=== PATIENT | female | born 1965 ===

== ENCOUNTER 2020-12-02 23:11 | Emergency (ER) | payer BC ==
[2020-12-02] MEDS ORDERED: levETIRAcetam 500 MG TAB PO ONE (23:50)
[2020-12-02] MEDS ORDERED: SODIUM CHLORIDE 0.9% 1000 ML 1,000 ML IV ONE (23:50)
[2020-12-02] MEDS ORDERED: cloNIDine 0.2 MG TAB PO ONE (23:53)
--- NOTE | 2020-12-02 23:54 | Emergency Department Report ---
HPI - General Chief Complaint: Hyperglycemia Time Seen by Provider: 12/02/20 23:39 - HPI HPI: Room 6 Patient is a 55-year-old female present with a chief complaint of hyperglycemia. Patient was recently discharged from this hospital after new onset seizure and hyperglycemia. The patient states she was given a prescription for insulin however the pharmacy states would not be able to fill it until Friday. The patient called back to this hospital spoke with staff to inquire what her current Accu-Chek was. The patient took her blood sugar and was found to be hyperglycemic at 525 so she was advised to come back to the emergency department. ED Past Medical Hx - Past Medical History Previous Medical History?: Yes Hx Hypertension: Yes Hx Diabetes: Yes Hx Seizures: Yes Hx Asthma: Yes Additional medical history: Fibromyalgia - Surgical History Past Surgical History?: No - Family History Family history: no significant - Social History Smoking Status: Never Smoker Substance Use Type: None - Medications Home Medications: Home Medications Medication Instructions Recorded Confirmed Last Taken Type Albuterol Sulfate [Albuterol 0.63% 0.63 mg IH TID PRN 12/01/20 12/01/20 Unknown History NEBS] Benzonatate 200 mg PO BID 12/01/20 12/01/20 Unknown History Budesonide/Formoterol Fumarate 10.2 gm IH DAILY 12/01/20 12/01/20 Unknown History [Symbicort 160-4.5 Mcg Inhaler] Montelukast [Singulair] 10 mg PO QPM 12/01/20 12/01/20 Unknown History Ibuprofen [Motrin 400 MG tab] 400 mg PO Q8H PRN #30 tablet 12/02/20 Unknown Rx Prednisone [predniSONE 10 mg 10 mg PO .TAPER #1 tab.ds.pk 12/02/20 Unknown Rx (6-Day Pack, 21 Tabs)] Triamter/Hctz 37.5-25 mg 1 each PO QAM #30 tablet 12/02/20 Unknown Rx [Maxzide-25] amLODIPine 5 mg PO QDAY #30 tablet 12/02/20 Unknown Rx Insulin Glargine [Lantus VIAL] 35 units SUB-Q QHS #10 ml 12/03/20 Unknown Rx Insulin Regular, Human [HumuLIN R] 0 unit SQ AC #1 vial 12/03/20 Unknown Rx levETIRAcetam [Keppra TAB] 500 mg PO BID #60 tablet 12/03/20 Unknown Rx ED Review of Systems ROS: Stated complaint: CALL BACK/HIGH BS/ MEDS Other details as noted in HPI Constitutional: no symptoms reported Eyes: denies: eye pain ENT: denies: throat pain Respiratory: no symptoms reported Cardiovascular: denies: chest pain Endocrine: no symptoms reported Gastrointestinal: denies: abdominal pain Genitourinary: denies: dysuria Musculoskeletal: denies: back pain Neurological: denies: headache Physical Exam - Physical Exam Vital Signs: Vital Signs 12/02/20 23:16 Temperature 98.7 F Pulse Rate 105 H Respiratory 16 Rate Blood Pressure 187/107 O2 Sat by Pulse 98 Oximetry Physical Exam: GENERAL: The patient is well-developed well-nourished female lying on stretcher not appearing to be in acute distress. [] HEENT: Normocephalic. Atraumatic. Extraocular motions are intact. Patient has moist mucous membranes. NECK: Supple. Trachea midline CHEST/LUNGS: Clear to auscultation. There is no respiratory distress noted. HEART/CARDIOVASCULAR: Regular. There is no tachycardia. There is no gallop rub or murmur. ABDOMEN: Abdomen is soft, nontender. Patient has normal bowel sounds. There is no abdominal distention. SKIN: There is no rash. There is no edema. There is no diaphoresis. NEURO: The patient is awake, alert, and oriented. The patient is cooperative. The patient has no focal neurologic deficits. The patient has normal speech and gait. MUSCULOSKELETAL: There is no evidence of acute injury. ED Course Vital Signs 12/02/20 23:16 Temperature 98.7 F Pulse Rate 105 H Respiratory 16 Rate Blood Pressure 187/107 O2 Sat by Pulse 98 Oximetry - Reevaluation(s) Reevaluation #1: 12/03/20 02:07 Accu-Chek 265 ED Medical Decision Making - Lab Data Result diagrams: 12/02/20 23:55 - Differential Diagnosis Hyperglycemia, DKA Critical care attestation.: If time is entered above; I have spent that time in minutes in the direct care of this critically ill patient, excluding procedure time. ED Disposition Clinical Impression: Hyperglycemia Disposition: DC-01 TO HOME OR SELFCARE Is pt being admited?: No Does the pt Need Aspirin: No Condition: Stable Additional Instructions: Return to the emergency department should you develop worsening symptoms, inability to tolerate food or liquids, high fever or any other concerns Prescriptions: Insulin Regular, Human [HumuLIN R] 0 unit SQ AC #1 vial levETIRAcetam [Keppra TAB] 500 mg PO BID #60 tablet Insulin Glargine [Lantus VIAL] 35 units SUB-Q QHS #10 ml Referrals: PRIMARY CARE, [Primary Care Provider] - 3-5 Days Time of Disposition: 02:09
[2020-12-03 00:18] VITALS: BP 166/88
[2020-12-03 00:50] LABS: Calcium 8.1 mg/dL (8.4-10.2)
[2020-12-03] MEDS ORDERED: INSULIN REGULAR, HUMAN 100 UNITS/1 ML IV ONE (01:07)
== END 2020-12-03 02:34 | disposition home or self-care (01) ==
LOC: ED 23:11
DX: E11.65 Type 2 diabetes mellitus with hyperglycemia (principal); I10 Essential (primary) hypertension; R56.9 Unspecified convulsions; J45.909 Unspecified asthma, uncomplicated; Z79.1 Long term (current) use of non-steroidal anti-inflammatories (NSAID); Z79.4 Long term (current) use of insulin; Z79.899 Other long term (current) drug therapy
CPT/HCPCS: 36415; 80048; 82805; 82962; 96361; 96374; 99283; J7030; J1815

== ENCOUNTER 2021-06-06 10:38 | Emergency (ER) | payer BC ==
[2021-06-06] MEDS ORDERED: guaiFENesin DM 200/20 MG ORAL LIQD 10 ML PO ONE (11:18)
[2021-06-06] MEDS ORDERED: ACETAMINOPHEN 325 MG TAB PO ONE (11:18)
[2021-06-06] MEDS ORDERED: dexAMETHasone 4 MG/ML VIAL IV ONE (11:19)
[2021-06-06] MEDS ORDERED: SODIUM CHLORIDE 0.9% 1000 ML 1,000 ML IV ONE (11:19)
[2021-06-06] MEDS ORDERED: cefTRIAXone/NS 2 GM/100 ML 2 GM/100 ML BAG IV ONE (11:19)
[2021-06-06] MEDS ORDERED: AZITHROMYCIN/NS 500 MG/250 ML 500 MG/250 ML BAG IV ONE (11:19)
--- NOTE | 2021-06-06 11:35 | Emergency Department Report ---
- General Chief Complaint: Upper Respiratory Infection Stated Complaint: COVID SYMPTOMS/ASTHMA Time Seen by Provider: 06/06/21 11:17 Source: patient Mode of arrival: Ambulatory Limitations: No Limitations - History of Present Illness Initial Comments: pt is a 55 yo female who presents to the ED with c/o COVID 19 symptoms that began 06/01/21. pt tested positive for COVID 19. her son also has COVID 19. she has associated cough, SOB, chest tightness. she reports she did have a subj ective fever but it resolved. she denies any v/d, pleuritic pain, leg swelling, hemoptysis. pmhx asthma, DM, HTN, fibromyalgia. no allergies to meds. pt states she saw her primary care doctor and completed a course of azithromycin and prednisone. - Related Data Home Medications Medication Instructions Recorded Confirmed Last Taken Albuterol Sulfate [Albuterol 0.63% 0.63 mg IH TID PRN 12/01/20 12/01/20 Unknown NEBS] Benzonatate 200 mg PO BID 12/01/20 12/01/20 Unknown Budesonide/Formoterol Fumarate 10.2 gm IH DAILY 12/01/20 12/01/20 Unknown [Symbicort 160-4.5 Mcg Inhaler] Montelukast [Singulair] 10 mg PO QPM 12/01/20 12/01/20 Unknown Previous Rx's Medication Instructions Recorded Last Taken Type Ibuprofen [Motrin 400 MG tab] 400 mg PO Q8H PRN #30 tablet 12/02/20 Unknown Rx Prednisone [predniSONE 10 mg 10 mg PO .TAPER #1 tab.ds.pk 12/02/20 Unknown Rx (6-Day Pack, 21 Tabs)] Triamter/Hctz 37.5-25 mg 1 each PO QAM #30 tablet 12/02/20 Unknown Rx [Maxzide-25] amLODIPine 5 mg PO QDAY #30 tablet 12/02/20 Unknown Rx Insulin Glargine [Lantus VIAL] 35 units SUB-Q QHS #10 ml 12/03/20 Unknown Rx Insulin Regular, Human [HumuLIN R] 0 unit SQ AC #1 vial 12/03/20 Unknown Rx levETIRAcetam [Keppra TAB] 500 mg PO BID #60 tablet 12/03/20 Unknown Rx Acetaminophen/Codeine [Tylenol 1 tab PO Q6H PRN #12 tab 06/06/21 Unknown Rx /Codeine # 3 tab] Benzonatate [Tessalon Perles] 100 mg PO Q8HR PRN #12 capsule 06/06/21 Unknown Rx Allergies Allergy/AdvReac Type Severity Reaction Status Date / Time No Known Allergies Allergy Verified 06/06/21 10:56 ED Review of Systems ROS: Stated complaint: COVID SYMPTOMS/ASTHMA Other details as noted in HPI Comment: All other systems reviewed and negative ED Past Medical Hx - Past Medical History Hx Hypertension: Yes Hx Diabetes: Yes Hx Seizures: Yes Hx Asthma: Yes Additional medical history: Fibromyalgia - Social History Smoking Status: Never Smoker Substance Use Type: None - Medications Home Medications: Home Medications Medication Instructions Recorded Confirmed Last Taken Type Albuterol Sulfate [Albuterol 0.63% 0.63 mg IH TID PRN 12/01/20 12/01/20 Unknown History NEBS] Benzonatate 200 mg PO BID 12/01/20 12/01/20 Unknown History Budesonide/Formoterol Fumarate 10.2 gm IH DAILY 12/01/20 12/01/20 Unknown History [Symbicort 160-4.5 Mcg Inhaler] Montelukast [Singulair] 10 mg PO QPM 12/01/20 12/01/20 Unknown History Ibuprofen [Motrin 400 MG tab] 400 mg PO Q8H PRN #30 tablet 12/02/20 Unknown Rx Prednisone [predniSONE 10 mg 10 mg PO .TAPER #1 tab.ds.pk 12/02/20 Unknown Rx (6-Day Pack, 21 Tabs)] Triamter/Hctz 37.5-25 mg 1 each PO QAM #30 tablet 12/02/20 Unknown Rx [Maxzide-25] amLODIPine 5 mg PO QDAY #30 tablet 12/02/20 Unknown Rx Insulin Glargine [Lantus VIAL] 35 units SUB-Q QHS #10 ml 12/03/20 Unknown Rx Insulin Regular, Human [HumuLIN R] 0 unit SQ AC #1 vial 12/03/20 Unknown Rx levETIRAcetam [Keppra TAB] 500 mg PO BID #60 tablet 12/03/20 Unknown Rx Acetaminophen/Codeine [Tylenol 1 tab PO Q6H PRN #12 tab 06/06/21 Unknown Rx /Codeine # 3 tab] Benzonatate [Tessalon Perles] 100 mg PO Q8HR PRN #12 capsule 06/06/21 Unknown Rx ED Physical Exam - General Limitations: No Limitations General appearance: alert, in no apparent distress - Head Head exam: Present: atraumatic, normocephalic - Eye Eye exam: Present: normal appearance - ENT ENT exam: Present: mucous membranes moist - Respiratory Respiratory exam: Present: normal lung sounds bilaterally. Absent: respiratory distress, wheezes, rales, rhonchi, stridor, chest wall tenderness, accessory muscle use, decreased breath sounds, prolonged expiratory - Cardiovascular Cardiovascular Exam: Present: regular rate, normal rhythm, normal heart sounds. Absent: systolic murmur, diastolic murmur, rubs, gallop - Neurological Exam Neurological exam: Present: alert, oriented X3 - Psychiatric Psychiatric exam: Present: normal affect, normal mood - Skin Skin exam: Present: warm, dry, intact ED Course Vital Signs 06/06/21 06/06/21 10:59 14:17 Temperature 99.7 F H 99.9 F H Pulse Rate 109 H 101 H Respiratory 22 16 Rate Blood Pressure 132/81 167/90 [Left] O2 Sat by Pulse 100 96 Oximetry ED Medical Decision Making - Lab Data Result diagrams: 06/06/21 12:01 06/06/21 12:01 Lab Results 06/06/21 06/06/21 06/06/21 Range/Units 12:01 12:01 12:01 WBC 7.0 (4.5-11.0) K/mm3 RBC 4.98 (3.65-5.03) M/mm3 Hgb 12.3 (10.1-14.3) gm/dl Hct 38.0 (30.3-42.9) % MCV 76 L (79-97) fl MCH 25 L (28-32) pg MCHC 32 (30-34) % RDW 15.4 H (13.2-15.2) % Plt Count 266 (140-440) K/mm3 Lymph % (Auto) 11.1 L (13.4-35.0) % [place] % (Auto) 7.5 H (0.0-7.3) % Eos % (Auto) 0.0 (0.0-4.3) % Baso % (Auto) 0.3 (0.0-1.8) % Lymph # (Auto) 0.8 L (1.2-5.4) K/mm3 [place] # (Auto) 0.5 (0.0-0.8) K/mm3 Eos # (Auto) 0.0 (0.0-0.4) K/mm3 Baso # (Auto) 0.0 (0.0-0.1) K/mm3 Seg Neutrophils % 81.1 H (40.0-70.0) % Seg Neutrophils # 5.7 (1.8-7.7) K/mm3 D-Dimer 375.99 H (0-234) ng/mlDDU VBG pH (7.320-7.420) Sodium 131 L (137-145) mmol/L Potassium 5.1 H (3.6-5.0) mmol/L Chloride 93.5 L (98-107) mmol/L Carbon Dioxide 23 (22-30) mmol/L Anion Gap 20 mmol/L BUN 26 H (7-17) mg/dL Creatinine 1.5 H (0.6-1.2) mg/dL Estimated GFR 36 ml/min BUN/Creatinine Ratio 17 % Glucose 449 H (65-100) mg/dL Calcium 8.6 (8.4-10.2) mg/dL Total Bilirubin 0.20 (0.1-1.2) mg/dL AST 24 (5-40) units/L ALT 22 (7-56) units/L Alkaline Phosphatase 82 (35-129) units/L C-Reactive Protein (0.00-1.30) mg/dL Total Protein 6.0 L (6.3-8.2) g/dL Albumin 3.1 L (3.9-5) g/dL Albumin/Globulin Ratio 1.1 % 06/06/21 06/06/21 Range/Units 12:01 15:16 WBC (4.5-11.0) K/mm3 RBC (3.65-5.03) M/mm3 Hgb (10.1-14.3) gm/dl Hct (30.3-42.9) % MCV (79-97) fl MCH (28-32) pg MCHC (30-34) % RDW (13.2-15.2) % Plt Count (140-440) K/mm3 Lymph % (Auto) (13.4-35.0) % [place] % (Auto) (0.0-7.3) % Eos % (Auto) (0.0-4.3) % Baso % (Auto) (0.0-1.8) % Lymph # (Auto) (1.2-5.4) K/mm3 [place] # (Auto) (0.0-0.8) K/mm3 Eos # (Auto) (0.0-0.4) K/mm3 Baso # (Auto) (0.0-0.1) K/mm3 Seg Neutrophils % (40.0-70.0) % Seg Neutrophils # (1.8-7.7) K/mm3 D-Dimer (0-234) ng/mlDDU VBG pH 7.411 (7.320-7.420) Sodium (137-145) mmol/L Potassium (3.6-5.0) mmol/L Chloride (98-107) mmol/L Carbon Dioxide (22-30) mmol/L Anion Gap mmol/L BUN (7-17) mg/dL Creatinine (0.6-1.2) mg/dL Estimated GFR ml/min BUN/Creatinine Ratio % Glucose (65-100) mg/dL Calcium (8.4-10.2) mg/dL Total Bilirubin (0.1-1.2) mg/dL AST (5-40) units/L ALT (7-56) units/L Alkaline Phosphatase (35-129) units/L C-Reactive Protein 1.60 H (0.00-1.30) mg/dL Total Protein (6.3-8.2) g/dL Albumin (3.9-5) g/dL Albumin/Globulin Ratio % Vital Signs 06/06/21 06/06/21 10:59 14:17 Temperature 99.7 F H 99.9 F H Pulse Rate 109 H 101 H Respiratory 22 16 Rate Blood Pressure 132/81 167/90 [Left] O2 Sat by Pulse 100 96 Oximetry - Radiology Data Radiology results: report reviewed Ordering Physician: JIAN BARKER Date of Service: 06/06/21 Procedure(s): XR chest routine 2V Accession Number(s): [id number] cc: JIAN BARKER Fluoro Time In Minutes: CHEST 2 VIEWS INDICATION: cough, SOB, CP. COMPARISON: None. FINDINGS: Support devices: None. Heart: Borderline. Lungs/Pleura: No acute air space or interstitial disease. No significant pleural effusion. IMPRESSION: Borderline heart size. Signer Name: Bret Holland MD Signed: 06/06/2021 11:56 AM Workstation Name: [id number] Transcribed By: ES Dictated By: Bret Holland MD Electronically Authenticated By: Bret Holland MD Signed Date/Time: 06/06/21 1156 DD/ 1155 TD/TT: Ordering Physician: JIAN BARKER Date of Service: 06/06/21 Procedure(s): NM perfusion only lung scan Accession Number(s): [id number] cc: JIAN BARKER NUCLEAR MEDICINE PERFUSION SCAN INDICATION: CP, SOB, elevated d-dimer CORRELATION: Chest x-ray performed the same day RADIOPHARMACEUTICAL: Perfusion: 5.1 mCi Tc-99m MAA given IV FINDINGS: Perfusion images show symmetric and uniform radiotracer distribution throughout bilateral lung zones with no evidence of unmatched segmental perfusion defects. Normal cardiac silhouette. IMPRESSION: Very low probability perfusion scan for pulmonary embolism. Signer Name: Justice Dunlap Jr, MD Signed: 06/06/2021 2:53 PM Workstation Name: [id number] Transcribed By: TTR Dictated By: JUSTICE DUNLAP JR, MD Electronically Authenticated By: JUSTICE DUNLAP JR, MD Signed Date/Time: 06/06/21 1453 DD/ 52 TD/TT: - Medical Decision Making pt is a 55 yo female who presents to the ED with c/o COVID 19 symptoms that began 06/01/21. pt tested positive for COVID 19. her son also has COVID 19. she has associated cough, SOB, chest tightness. she reports she did have a subjective fever but it resolved. she denies any v/d, pleuritic pain, leg swelling, hemoptysis. pmhx asthma, DM, HTN, fibromyalgia. no allergies to meds. pt states she saw her primary care doctor and completed a course of azithromycin and prednisone. Vitals with mild low-grade fever and elevated heart rate which improved upon repeat. Patient has no hypoxia. I personally ambulated patient for 2 minutes and she was able to maintain oxygen saturation of 97% or greater on room air. Labs with elevated D-dimer, dehydration, kidney dysfunction which appears slightly worse from previous. CXR: Lungs/Pleura: No acute air space or interstitial disease. No significant pleural effusion. IMPRESSION: Borderline heart size. VQ scan: Very low probability perfusion scan for pulmonary embolism. Patient given medications on the emergency department with improvement of her symptoms. Patient just completed a course of azithromycin and prednisone. Initial blood glucose elevated, improved upon 1 L IV fluids. Glucose elevation could be secondary to recent steroid use versus uncontrolled diabetes, discussed the importance of outpatient follow-up. 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 Advised patient please take medication as prescribed. increase your fluid intake. please self quarantine from 10 days from the onset of your symptoms. Follow-up with a primary care doctor for reexamination. Follow-up with a jewelry inspector regarding your kidney dysfunction. Return to emergency room immediately for any new or worsening symptoms. Recommend for you to get a pulse oximetry meter [id number] and if your oxygen is going below 93% please return to the emergency room. Critical care attestation.: If time is entered above; I have spent that time in minutes in the direct care of this critically ill patient, excluding procedure time. ED Disposition Clinical Impression: COVID-19, Dehydration, Kidney dysfunction, Hyperglycemia Disposition: 01 HOME / SELF CARE / HOMELESS Is pt being admited?: No Does the pt Need Aspirin: No Condition: Stable Instructions: COVID-19 Frequently Asked Questions, COVID-19 Additional Instructions: please take medication as prescribed. increase your fluid intake. please self quarantine from 10 days from the onset of your symptoms. Follow-up with a primary care doctor for reexamination. Follow-up with a jewelry inspector regarding your kidney dysfunction. Return to emergency room immediately for any new or worsening symptoms. Recommend for you to get a pulse oximetry meter [id number] and if your oxygen is going below 93% please return to the emergency room. Prescriptions: Benzonatate [Tessalon Perles] 100 mg PO Q8HR PRN #12 capsule PRN Reason: cough Acetaminophen/Codeine [Tylenol /Codeine # 3 tab] 1 tab PO Q6H PRN #12 tab PRN Reason: pain Referrals: your, primary care doctor [Other] - 2-3 Days Time of Disposition: 15:06 Print Language: THAI
--- NOTE | 2021-06-06 12:00 | XRay Report ---
CHEST 2 VIEWS INDICATION: cough, SOB, CP. COMPARISON: None. FINDINGS: Support devices: None. Heart: Borderline. Lungs/Pleura: No acute air space or interstitial disease. No significant pleural effusion. IMPRESSION: Borderline heart size. Signer Name: Bret Holland MD Signed: 06/06/2021 11:56 AM Workstation Name: [id number]
[2021-06-06 12:38] LABS: Basophils % (Auto) 0.3 % (0.0-1.8); Hemoglobin 12.3 gm/dl (10.1-14.3); Lymphocytes # (Auto) 0.8 K/mm3 (1.2-5.4); Lymphocytes % (Auto) 11.1 % (13.4-35.0); Mean Corpuscular HGB Conc 32 % (30-34); Mean Corpuscular Volume 76 fl (79-97); Monocytes # (Auto) 0.5 K/mm3 (0.0-0.8); Monocytes % (Auto) 7.5 % (0.0-7.3); Platelet Count 266 K/mm3 (140-440); Red Blood Count 4.98 M/mm3 (3.65-5.03); Red Cell Distribution Width 15.4 % (13.2-15.2)
[2021-06-06 12:47] LABS: Albumin 3.1 g/dL (3.9-5); Calcium 8.6 mg/dL (8.4-10.2)
[2021-06-06 14:21] VITALS: BP 167/90
--- NOTE | 2021-06-06 14:58 | Nuclear Medicine Report ---
NUCLEAR MEDICINE PERFUSION SCAN INDICATION: CP, SOB, elevated d-dimer CORRELATION: Chest x-ray performed the same day RADIOPHARMACEUTICAL: Perfusion: 5.1 mCi Tc-99m MAA given IV FINDINGS: Perfusion images show symmetric and uniform radiotracer distribution throughout bilateral lung zones with no evidence of unmatched segmental perfusion defects. Normal cardiac silhouette. IMPRESSION: Very low probability perfusion scan for pulmonary embolism. Signer Name: Justice Dunlap Jr, MD Signed: 06/06/2021 2:53 PM Workstation Name: [id number]
--- NOTE | 2021-06-08 08:44 | Electrocardiograph Report ---
[facility] Test Date: 2021-06-06 Test Time: 15:13:15 Pat Name: ALEXA NGUYEN Department: Room: Gender: F Housekeeper: ALONDRA : 1965 Requested By: MALLORY RAJAN Order Number: [id number] Reading MD: Nicholas Marcus Measurements Intervals [place] Rate: 100 P: 63 VT: 161 QRS: -11 QRSD: 78 T: 72 QT: 360 QTc: 465 Interpretive Statements Sinus tachycardia Probable left atrial enlargement RSR' IN V1 OR V2, PROBABLY NORMAL VARIANT Nonspecific T abnrm, anterolateral leads No previous ECG available for comparison Electronically Signed On 06-08-2021 8:43:48 EDT by Nicholas Marcus
== END 2021-06-06 16:25 | disposition home or self-care (01) ==
LOC: ED 10:38
DX: U07.1 COVID-19 (principal); E86.0 Dehydration; N28.9 Disorder of kidney and ureter, unspecified; E11.65 Type 2 diabetes mellitus with hyperglycemia; I10 Essential (primary) hypertension; J45.909 Unspecified asthma, uncomplicated; R56.9 Unspecified convulsions; M79.7 Fibromyalgia
CPT/HCPCS: 36415; 71046; 78580; 80053; 82805; 82962; 85025; 85379; 86140; 93005; 96365; 96368; 96375; 99284; A9540; J0456; J0696; J1100; J7030

== ENCOUNTER 2021-10-14 13:32 | Emergency (ER) | payer BC ==
[2021-10-14] MEDS ORDERED: SODIUM CHLORIDE 0.9% 1000 ML 1,000 ML IV ONE (14:14)
[2021-10-14] MEDS ORDERED: ONDANSETRON 4 MG/2 ML INJ IV ONE (14:14)
[2021-10-14] MEDS ORDERED: MORPHINE 4 MG/1 ML INJ IV ONE (14:14)
--- NOTE | 2021-10-14 15:07 | Emergency Department Report ---
ED Abdominal Pain HPI - General Chief Complaint: Abdominal Pain Stated Complaint: RGT LUMBAR PAIN Time Seen by Provider: 10/14/21 14:08 Source: patient Mode of arrival: Ambulatory Limitations: No Limitations - History of Present Illness Initial Comments: Patient is a 55-year-old female presents emergency room complaints of right upper quadrant abdominal pain that began 3 weeks ago. She states that she has been seeing her primary care doctor and has been given medications but states that the medications are not helping. She states the last medication she was given was meloxicam. She denies any fever, nausea, vomiting, diarrhea, hematochezia, melena, hematemesis, urinary symptoms. She states that she is having normal bowel movements. She has a past medical history of diabetes and fibromyalgia. She has a past abdominal surgical history of cholecystectomy and . No allergies to medications Severity scale (0 -10): 10 - Related Data Home Medications Medication Instructions Recorded Confirmed Last Taken Albuterol Sulfate [Albuterol 0.63% 0.63 mg IH TID PRN 12/01/20 12/01/20 Unknown NEBS] Benzonatate 200 mg PO BID 12/01/20 12/01/20 Unknown Budesonide/Formoterol Fumarate 10.2 gm IH DAILY 12/01/20 12/01/20 Unknown [Symbicort 160-4.5 Mcg Inhaler] Montelukast [Singulair] 10 mg PO QPM 12/01/20 12/01/20 Unknown Previous Rx's Medication Instructions Recorded Last Taken Type Ibuprofen [Motrin 400 MG tab] 400 mg PO Q8H PRN #30 tablet 12/02/20 Unknown Rx Prednisone [predniSONE 10 mg 10 mg PO .TAPER #1 tab.ds.pk 12/02/20 Unknown Rx (6-Day Pack, 21 Tabs)] Triamter/Hctz 37.5-25 mg 1 each PO QAM #30 tablet 12/02/20 Unknown Rx [Maxzide-25] Insulin Glargine [Lantus VIAL] 35 units SUB-Q QHS #10 ml 12/03/20 Unknown Rx Insulin Regular, Human [HumuLIN R] 0 unit SQ AC #1 vial 12/03/20 Unknown Rx levETIRAcetam [Keppra TAB] 500 mg PO BID #60 tablet 12/03/20 Unknown Rx Acetaminophen/Codeine [Tylenol 1 tab PO Q6H PRN #12 tab 06/06/21 Unknown Rx /Codeine # 3 tab] Benzonatate [Tessalon Perles] 100 mg PO Q8HR PRN #12 capsule 06/06/21 Unknown Rx Dicyclomine [Bentyl] 10 mg PO QID PRN #28 capsule 10/14/21 Unknown Rx Famotidine [Pepcid] 40 mg PO QHS #30 tab 10/14/21 Unknown Rx Losartan [Cozaar] 12.5 mg PO QDAY #30 tablet 10/14/21 Unknown Rx Ondansetron [Zofran Odt] 4 mg PO Q8HR PRN #8 tab.rapdis 10/14/21 Unknown Rx amLODIPine 5 mg PO QDAY #30 tablet 10/14/21 Unknown Rx Allergies Allergy/AdvReac Type Severity Reaction Status Date / Time No Known Allergies Allergy Verified 06/06/21 10:56 ED Review of Systems ROS: Stated complaint: RGT LUMBAR PAIN Other details as noted in HPI Comment: All other systems reviewed and negative ED Past Medical Hx - Past Medical History Hx Hypertension: Yes Hx Diabetes: Yes Hx Seizures: Yes Hx Asthma: Yes Additional medical history: Fibromyalgia - Social History Smoking Status: Never Smoker Substance Use Type: None - Medications Home Medications: Home Medications Medication Instructions Recorded Confirmed Last Taken Type Albuterol Sulfate [Albuterol 0.63% 0.63 mg IH TID PRN 12/01/20 12/01/20 Unknown History NEBS] Benzonatate 200 mg PO BID 12/01/20 12/01/20 Unknown History Budesonide/Formoterol Fumarate 10.2 gm IH DAILY 12/01/20 12/01/20 Unknown History [Symbicort 160-4.5 Mcg Inhaler] Montelukast [Singulair] 10 mg PO QPM 12/01/20 12/01/20 Unknown History Ibuprofen [Motrin 400 MG tab] 400 mg PO Q8H PRN #30 tablet 12/02/20 Unknown Rx Prednisone [predniSONE 10 mg 10 mg PO .TAPER #1 tab.ds.pk 12/02/20 Unknown Rx (6-Day Pack, 21 Tabs)] Triamter/Hctz 37.5-25 mg 1 each PO QAM #30 tablet 12/02/20 Unknown Rx [Maxzide-25] Insulin Glargine [Lantus VIAL] 35 units SUB-Q QHS #10 ml 12/03/20 Unknown Rx Insulin Regular, Human [HumuLIN R] 0 unit SQ AC #1 vial 12/03/20 Unknown Rx levETIRAcetam [Keppra TAB] 500 mg PO BID #60 tablet 12/03/20 Unknown Rx Acetaminophen/Codeine [Tylenol 1 tab PO Q6H PRN #12 tab 06/06/21 Unknown Rx /Codeine # 3 tab] Benzonatate [Tessalon Perles] 100 mg PO Q8HR PRN #12 capsule 06/06/21 Unknown Rx Dicyclomine [Bentyl] 10 mg PO QID PRN #28 capsule 10/14/21 Unknown Rx Famotidine [Pepcid] 40 mg PO QHS #30 tab 10/14/21 Unknown Rx Losartan [Cozaar] 12.5 mg PO QDAY #30 tablet 10/14/21 Unknown Rx Ondansetron [Zofran Odt] 4 mg PO Q8HR PRN #8 tab.rapdis 10/14/21 Unknown Rx amLODIPine 5 mg PO QDAY #30 tablet 10/14/21 Unknown Rx ED Physical Exam - General Limitations: No Limitations General appearance: alert, in no apparent distress - Head Head exam: Present: atraumatic, normocephalic - Eye Eye exam: Present: normal appearance - ENT ENT exam: Present: mucous membranes moist - Respiratory Respiratory exam: Present: normal lung sounds bilaterally. Absent: respiratory distress, wheezes, rales, rhonchi, stridor, chest wall tenderness, accessory muscle use, decreased breath sounds, prolonged expiratory - Cardiovascular Cardiovascular Exam: Present: regular rate, normal rhythm, normal heart sounds. Absent: systolic murmur, diastolic murmur, rubs, gallop - GI/Abdominal GI/Abdominal exam: Present: soft, tenderness (RUQ), normal bowel sounds. Absent: distended, guarding, rebound, rigid - Neurological Exam Neurological exam: Present: alert, oriented X3 - Psychiatric Psychiatric exam: Present: normal affect, normal mood - Skin Skin exam: Present: warm, dry, intact ED Course Vital Signs 10/14/21 13:56 Temperature 99.2 F Pulse Rate 104 H Respiratory 20 Rate Blood Pressure 207/99 [Right] O2 Sat by Pulse 99 Oximetry ED Medical Decision Making - Lab Data Result diagrams: 10/14/21 14:56 10/14/21 14:56 Lab Results 10/14/21 10/14/21 10/14/21 Range/Units 14:56 14:56 Unknown WBC 6.0 (4.5-11.0) K/mm3 RBC 4.27 (3.65-5.03) M/mm3 Hgb 10.6 (10.1-14.3) gm/dl Hct 33.6 (30.3-42.9) % MCV 79 (79-97) fl MCH 25 L (28-32) pg MCHC 31 (30-34) % RDW 14.0 (13.2-15.2) % Plt Count 317 (140-440) K/mm3 Lymph % (Auto) 20.5 (13.4-35.0) % Mckenzie % (Auto) 5.9 (0.0-7.3) % Eos % (Auto) 2.1 (0.0-4.3) % Baso % (Auto) 0.7 (0.0-1.8) % Lymph # (Auto) 1.2 (1.2-5.4) K/mm3 Mckenzie # (Auto) 0.3 (0.0-0.8) K/mm3 Eos # (Auto) 0.1 (0.0-0.4) K/mm3 Baso # (Auto) 0.0 (0.0-0.1) K/mm3 Seg Neutrophils % 70.8 H (40.0-70.0) % Seg Neutrophils # 4.2 (1.8-7.7) K/mm3 Sodium 137 (137-145) mmol/L Potassium 4.3 (3.6-5.0) mmol/L Chloride 103.5 (98-107) mmol/L Carbon Dioxide 25 (22-30) mmol/L Anion Gap 13 mmol/L BUN 30 H (7-17) mg/dL Creatinine 1.4 H (0.6-1.2) mg/dL Estimated GFR 39 ml/min BUN/Creatinine Ratio 21 % Glucose 221 H (65-100) mg/dL Calcium 8.6 (8.4-10.2) mg/dL Total Bilirubin < 0.20 (0.1-1.2) mg/dL AST 11 (5-40) units/L ALT 11 (7-56) units/L Alkaline Phosphatase 82 (35-129) units/L Total Protein 6.1 L (6.3-8.2) g/dL Albumin 3.0 L (3.9-5) g/dL Albumin/Globulin Ratio 1.0 % Lipase 63 H (13-60) units/L Urine Color Straw (Yellow) Urine Turbidity Slightly-cloudy (Clear) Urine pH 7.0 (5.0-7.0) Ur Specific [place] 1.012 (1.003-1.030) Urine Protein >500 (Negative) mg/dL Urine Glucose (UA) >=500 (Negative) mg/dL Urine Ketones Neg (Negative) mg/dL Urine Blood Neg (Negative) Urine Nitrite Neg (Negative) Urine Bilirubin Neg (Negative) Urine Urobilinogen < 2.0 (<2.0) mg/dL Ur Leukocyte Esterase Neg (Negative) Urine WBC (Auto) < 1.0 (0.0-6.0) /HPF Urine RBC (Auto) < 1.0 (0.0-6.0) /HPF - Radiology Data Radiology results: report reviewed Ordering Physician: JIAN BARKER Date of Service: 10/14/21 Procedure(s): CT abdomen pelvis wo con Accession Number(s): [id number] cc: JIAN BARKER CT ABDOMEN AND PELVIS WITHOUT IV CONTRAST INDICATION: RUQ abd pain. COMPARISON: None available. TECHNIQUE: All CT scans at this facility use dose modulation, automated exposure control, iterative reconstruction or weight based dosing, when appropriate, to reduce radiation dose to as low as reasonably achievable. FINDINGS: Lung Bases: No significant abnormality. Skeletal System: No acute abnormality. ABDOMEN: Liver: No significant abnormality. Gallbladder: Removed. Bile Ducts: No significant abnormality. Adrenals: No significant abnormality. Right Kidney: No significant abnormality. Left Kidney: No significant abnormality. Pancreas: No significant abnormality. Spleen: No significant abnormality. Upper GI tract: No significant abnormality. Lymph Nodes: No significant adenopathy. Aorta: No significant abnormality. Additional Findings: No significant abnormality. PELVIS: Colon: No acute abnormality. Urinary Bladder and Distal Ureters: No significant abnormality. Appendix: No significant abnormality. Lymph Nodes: No significant adenopathy. Additional Findings: Enlarged, leiomyomatous uterus. IMPRESSION: 1. Within the limitations of non contrast technique, no acute process in the abdomen or pelvis. 2. Incidental findings, as above. Signer Name: Junior Capone MD Signed: 10/14/2021 7:08 PM Workstation Name: [id number] Transcribed By: SHENG Dictated By: Junior Capone MD Electronically Authenticated By: Junior Capone MD Signed Date/Time: 10/14/211907 DD/ 03 TD/TT: - Medical Decision Making Patient is a 55-year-old female presents emergency room complaints of right upper quadrant abdominal pain that began 3 weeks ago. She states that she has been seeing her primary care doctor and has been given medications but states that the medications are not helping. She states the last medication she was given was meloxicam. She denies any fever, nausea, vomiting, diarrhea, hematochezia, melena, hematemesis, urinary symptoms. She states that she is having normal bowel movements. She has a past medical history of diabetes and fibromyalgia. She has a past abdominal surgical history of cholecystectomy and . No allergies to medications. initial vitals with elevated BP On exam patient has right upper quadrant tenderness, no guarding, no rebound, no rigidity, no peritoneal signs. initial vitals with elevated blood pressure, pt states she is out of her amlodipine 5mg daily and losartan 12.5 mg daily, on repeat her blood pressure is normal. Labs with stable chronic CKD, glucose 221. UA without evidence of UTI. CT abdomen pelvis with oral contrast 1. Within the limitations of non contrast technique, no acute process in the abdomen or pelvis. 2. Incidental findings, as above. Patient given medications while in the emergency department with improvement of her symptoms. she was able to tolerate po intake without difficulty. pt requested refill of her BP medication, I advised pt to take her blood pressure prior to taking medication to make sure to not drop it too low and follow up with her PCP. Discussed all findings with patient. Patient given prescription for medication. Patient will be referred to outpatient GI for further evaluation. Advised patient please take medication as prescribed. Please follow-up with a GI specialist. Please follow-up with your primary care doctor. Return to emergency room for any new or worsening symptoms. Critical care attestation.: If time is entered above; I have spent that time in minutes in the direct care of this critically ill patient, excluding procedure time. ED Disposition Clinical Impression: Abdominal pain Qualifiers: Abdominal location: right upper quadrant Qualified Code(s): R10.11 - Right upper quadrant pain Uterine fibroid Qualifiers: Uterine leiomyoma location: unspecified location Qualified Code(s): D25.9 - Leiomyoma of uterus, unspecified CKD (chronic kidney disease) Qualifiers: Chronic kidney disease stage: unspecified stage Qualified Code(s): N18.9 - Chronic kidney disease, unspecified Disposition: 01 HOME / SELF CARE / HOMELESS Is pt being admited?: No Does the pt Need Aspirin: No Condition: Stable Instructions: Uterine Fibroids, Abdominal Pain, Adult, [id number], Abdominal Pain (ED) Additional Instructions: please take medication as prescribed. Please follow-up with a GI specialist. Please follow-up with your primary care doctor. Return to emergency room for any new or worsening symptoms. Prescriptions: Famotidine [Pepcid] 40 mg PO QHS #30 tab amLODIPine 5 mg PO QDAY #30 tablet Dicyclomine [Bentyl] 10 mg PO QID PRN #28 capsule PRN Reason: abd pain Losartan [Cozaar] 12.5 mg PO QDAY #30 tablet Ondansetron [Zofran Odt] 4 mg PO Q8HR PRN #8 tab.rapdis PRN Reason: nausea/vomiting Referrals: PRIMARY CARE,MD [Primary Care Provider] - 3-5 Days [facility] [Provider Group] - 3-5 Days Forms: Work/School Release Form(ED) Time of Disposition: 19:18 Print Language: UZBEK
[2021-10-14 15:49] LABS: Basophils % (Auto) 0.7 % (0.0-1.8); Eosinophils # (Auto) 0.1 K/mm3 (0.0-0.4); Eosinophils % (Auto) 2.1 % (0.0-4.3); Hematocrit 33.6 % (30.3-42.9); Hemoglobin 10.6 gm/dl (10.1-14.3); Lymphocytes # (Auto) 1.2 K/mm3 (1.2-5.4); Lymphocytes % (Auto) 20.5 % (13.4-35.0); Mean Corpuscular HGB Conc 31 % (30-34); Mean Corpuscular Volume 79 fl (79-97); Monocytes # (Auto) 0.3 K/mm3 (0.0-0.8); Monocytes % (Auto) 5.9 % (0.0-7.3); Platelet Count 317 K/mm3 (140-440); Red Blood Count 4.27 M/mm3 (3.65-5.03)
[2021-10-14 16:06] LABS: Alanine Aminotransferase 11 units/L (7-56); BUN/Creatinine Ratio 21; Blood Urea Nitrogen 30 mg/dL (7-17); Calcium 8.6 mg/dL (8.4-10.2); Hemolysis Index 7
[2021-10-14 16:53] LABS: Bilirubin,Urine NEG (Negative); Blood,Urine NEG (Negative); Color,Urine Straw (Yellow); Urobilinogen,Urine < 2.0 mg/dL (<2.0)
[2021-10-14 16:55] LABS: Protein,Urine >500 mg/dL (Negative); RBC,Urine < 1.0 /HPF (0.0-6.0); WBC,Urine < 1.0 /HPF (0.0-6.0)
--- NOTE | 2021-10-14 19:12 | Cat Scan Report ---
CT ABDOMEN AND PELVIS WITHOUT IV CONTRAST INDICATION: RUQ abd pain. COMPARISON: None available. TECHNIQUE: All CT scans at this facility use dose modulation, automated exposure control, iterative reconstructi on or weight based dosing, when appropriate, to reduce radiation dose to as low as reasonably achieva ble. FINDINGS: Lung Bases: No significant abnormality. Skeletal System: No acute abnormality. ABDOMEN: Liver: No significant abnormality. Gallbladder: Removed. Bile Ducts: No significant abnormality. Adrenals: No significant abnormality. Right Kidney: No significant abnormality. Left Kidney: No significant abnormality. Pancreas: No significant abnormality. Spleen: No significant abnormality. Upper GI tract: No significant abnormality. Lymph Nodes: No significant adenopathy. Aorta: No significant abnormality. Additional Findings: No significant abnormality. PELVIS: Colon: No acute abnormality. Urinary Bladder and Distal Ureters: No significant abnormality. Appendix: No significant abnormality. Lymph Nodes: No significant adenopathy. Additional Findings: Enlarged, leiomyomatous uterus. IMPRESSION: 1. Within the limitations of non contrast technique, no acute process in the abdomen or pelvis. 2. Incidental findings, as above. Signer Name: Junior Capone MD Signed: 10/14/2021 7:08 PM Workstation Name: [id number]
[2021-10-14 20:59] VITALS: BP 110/55
== END 2021-10-14 19:47 | disposition home or self-care (01) ==
LOC: ED 13:32
DX: D25.9 Leiomyoma of uterus, unspecified (principal); R10.11 Right upper quadrant pain; I12.9 Hypertensive chronic kidney disease with stage 1 through stage 4 chronic kidney disease, or unspecified chronic kidney disease; E11.22 Type 2 diabetes mellitus with diabetic chronic kidney disease; N18.9 Chronic kidney disease, unspecified; J45.909 Unspecified asthma, uncomplicated; R56.9 Unspecified convulsions; Z79.899 Other long term (current) drug therapy
CPT/HCPCS: 36415; 74176; 80053; 81001; 83690; 85025; 96361; 96374; 96375; 99284; J2270; J2405; J7030; Q0162

== ENCOUNTER 2021-11-15 07:40 | Emergency (ER) | payer BC ==
[2021-11-15 08:00] VITALS: BP 209/97
[2021-11-15] MEDS ORDERED: dexAMETHasone 4 MG/ML VIAL IV ONE (08:07)
--- NOTE | 2021-11-15 08:09 | Emergency Department Report ---
ED General Adult HPI - General Chief complaint: Pain General Stated complaint: PAIN ALL OVER BODY PUI?: No Time Seen by Provider: 11/15/21 08:07 Source: patient Mode of arrival: Ambulatory Limitations: No Limitations - History of Present Illness Initial comments: 56 yo comes to ER with generalized body pain. Hx fibro since 2011. When I told her we dont do chronic pain management she said the last time they gave her morphine. no cp no sob no fever no chills ambulatory/yelling about getting morphine. told [place] EMT if she had a magic wand she would put her pain on me so I knew how bad it was then asking for work note NAD in triage -: Gradual, year(s) (2011) Improves with: other (morphine) Worsens with: none Associated Symptoms: denies other symptoms Treatments Prior to Arrival: other - Related Data Home Medications Medication Instructions Recorded Confirmed Last Taken Albuterol Sulfate [Albuterol 0.63% 0.63 mg IH TID PRN 12/01/20 12/01/20 Unknown NEBS] Budesonide/Formoterol Fumarate 10.2 gm IH DAILY 12/01/20 12/01/20 Unknown [Symbicort 160-4.5 Mcg Inhaler] Montelukast [Singulair] 10 mg PO QPM 12/01/20 12/01/20 Unknown Previous Rx's Medication Instructions Recorded Last Taken Type Ibuprofen [Motrin 400 MG tab] 400 mg PO Q8H PRN #30 tablet 12/02/20 Unknown Rx Triamter/Hctz 37.5-25 mg 1 each PO QAM #30 tablet 12/02/20 Unknown Rx [Maxzide-25] Insulin Glargine [Lantus VIAL] 35 units SUB-Q QHS #10 ml 12/03/20 Unknown Rx Insulin Regular, Human [HumuLIN R] 0 unit SQ AC #1 vial 12/03/20 Unknown Rx levETIRAcetam [Keppra TAB] 500 mg PO BID #60 tablet 12/03/20 Unknown Rx Dicyclomine [Bentyl] 10 mg PO QID PRN #28 capsule 10/14/21 Unknown Rx Famotidine [Pepcid] 40 mg PO QHS #30 tab 10/14/21 Unknown Rx Losartan [Cozaar] 12.5 mg PO QDAY #30 tablet 10/14/21 Unknown Rx amLODIPine 5 mg PO QDAY #30 tablet 10/14/21 Unknown Rx predniSONE [Deltasone] 20 mg PO DAILY #5 tablet 11/15/21 Unknown Rx Allergies Allergy/AdvReac Type Severity Reaction Status Date / Time No Known Allergies Allergy Verified 11/15/21 07:55 ED Review of Systems ROS: Stated complaint: PAIN ALL OVER BODY Other details as noted in HPI Comment: All other systems reviewed and negative ED Past Medical Hx - Past Medical History Previous Medical History?: Yes Hx Hypertension: Yes Hx Diabetes: Yes Hx Seizures: Yes Hx Asthma: Yes Additional medical history: Fibromyalgia - Surgical History Past Surgical History?: Yes Hx Cholecystectomy: Yes Additional Surgical History: EYE SURGERY - Family History Family history: no significant - Social History Smoking Status: Never Smoker Substance Use Type: None - Medications Home Medications: Home Medications Medication Instructions Recorded Confirmed Last Taken Type Albuterol Sulfate [Albuterol 0.63% 0.63 mg IH TID PRN 12/01/20 12/01/20 Unknown History NEBS] Budesonide/Formoterol Fumarate 10.2 gm IH DAILY 12/01/20 12/01/20 Unknown History [Symbicort 160-4.5 Mcg Inhaler] Montelukast [Singulair] 10 mg PO QPM 12/01/20 12/01/20 Unknown History Ibuprofen [Motrin 400 MG tab] 400 mg PO Q8H PRN #30 tablet 12/02/20 Unknown Rx Triamter/Hctz 37.5-25 mg 1 each PO QAM #30 tablet 12/02/20 Unknown Rx [Maxzide-25] Insulin Glargine [Lantus VIAL] 35 units SUB-Q QHS #10 ml 12/03/20 Unknown Rx Insulin Regular, Human [HumuLIN R] 0 unit SQ AC #1 vial 12/03/20 Unknown Rx levETIRAcetam [Keppra TAB] 500 mg PO BID #60 tablet 12/03/20 Unknown Rx Dicyclomine [Bentyl] 10 mg PO QID PRN #28 capsule 10/14/21 Unknown Rx Famotidine [Pepcid] 40 mg PO QHS #30 tab 10/14/21 Unknown Rx Losartan [Cozaar] 12.5 mg PO QDAY #30 tablet 10/14/21 Unknown Rx amLODIPine 5 mg PO QDAY #30 tablet 10/14/21 Unknown Rx predniSONE [Deltasone] 20 mg PO DAILY #5 tablet 11/15/21 Unknown Rx ED Physical Exam - General Limitations: No Limitations General appearance: alert, in no apparent distress - Head Head exam: Present: atraumatic, normocephalic - Eye Eye exam: Present: normal appearance - ENT ENT exam: Present: mucous membranes moist - Neck Neck exam: Present: normal inspection - Respiratory Respiratory exam: Present: normal lung sounds bilaterally. Absent: respiratory distress - Cardiovascular Cardiovascular Exam: Present: regular rate, normal rhythm. Absent: systolic mur mur, diastolic murmur, rubs, gallop - GI/Abdominal GI/Abdominal exam: Present: soft, normal bowel sounds - Extremities Exam Extremities exam: Present: normal inspection - Back Exam Back exam: Present: normal inspection - Neurological Exam Neurological exam: Present: alert, oriented X3 - Psychiatric Psychiatric exam: Present: normal affect, normal mood - Skin Skin exam: Present: warm, dry, intact, normal color. Absent: rash ED Course Vital Signs 11/15/21 07:57 Temperature 98.4 F Pulse Rate 83 Respiratory 20 Rate Blood Pressure 209/97 O2 Sat by Pulse 97 Oximetry ED Medical Decision Making - Medical Decision Making a/c pain requesting morphine like last time denies being on narcs/chronic pain reg at home sees pcp who gives her non narcs had mri yesterday - results pending given decadron IM 6 mg dc home with prednisone/continue home meds and follow up with pcp. Pt verbalizes understanding. Is up set I've not given her morphine. Vital Signs 11/15/21 07:57 Temperature 98.4 F Pulse Rate 83 Respiratory 20 Rate Blood Pressure 209/97 O2 Sat by Pulse 97 Oximetry - Differential Diagnosis a/c pain Critical care attestation.: If time is entered above; I have spent that time in minutes in the direct care of this critically ill patient, excluding procedure time. ED Disposition Clinical Impression: Chronic pain, Fibromyalgia, Drug-seeking behavior Disposition: 01 HOME / SELF CARE / HOMELESS Is pt being admited?: No Does the pt Need Aspirin: No Condition: Stable Instructions: Chronic Pain, Adult Additional Instructions: med as ordered today Prescriptions: predniSONE [Deltasone] 20 mg PO DAILY #5 tablet Referrals: DREAD PRESLEY MD [Staff Physician] - 3-5 Days Time of Disposition: 08:08
[2021-11-15] MEDS ORDERED: dexAMETHasone 4 MG/ML VIAL IM ONE (08:10)
== END 2021-11-15 09:00 | disposition home or self-care (01) ==
LOC: ED 07:40
DX: G89.29 Other chronic pain (principal); M79.7 Fibromyalgia; Z76.5 Malingerer [conscious simulation]; I10 Essential (primary) hypertension; E11.8 Type 2 diabetes mellitus with unspecified complications; J45.909 Unspecified asthma, uncomplicated
CPT/HCPCS: 96372; 99282; J1100

== ENCOUNTER 2021-12-30 09:58 | Inpatient (IN) | payer BC ==
[2021-12-30] MEDS ORDERED: SODIUM CHLORIDE 0.9% 1000 ML 1,000 ML IV ONE ×2 (10:08→12:04)
--- NOTE | 2021-12-30 10:12 | Emergency Department Report ---
ED Altered Mental Status HPI - General Chief Complaint: Altered Mental Status Stated Complaint: AMS Time Seen by Provider: 12/30/21 10:02 Source: patient, EMS Mode of arrival: Stretcher Limitations: Altered Mental Status - History of Present Illness Initial Comments: Patient is 56-year-old female with history of diabetes, hypertension and seizure. Patient brought to the emergency room via EMS from home for evaluation of altered mental status and decreased responsiveness. Patient son found patient in her bed naked with decreased responsiveness. EMS reported that patient ambulated down from a posterior with assistance of her sister. Stroke scale was 0. Upon arrival to the ER patient is alert, oriented x3 and able to tell the whole story. She is complaining of left sided pain extending from the chest all the way down to the back. Patient stated that she had an MRI done by her primary care physician but she did not have the results yet. MD Complaint: decreased responsiveness -: days(s) (2) - Related Data Home Medications Medication Instructions Recorded Confirmed Last Taken Albuterol Sulfate [Albuterol 0.63% 0.63 mg IH TID PRN 12/01/20 12/01/20 Unknown NEBS] Budesonide/Formoterol Fumarate 10.2 gm IH DAILY 12/01/20 12/01/20 Unknown [Symbicort 160-4.5 Mcg Inhaler] Montelukast [Singulair] 10 mg PO QPM 12/01/20 12/01/20 Unknown Previous Rx's Medication Instructions Recorded Last Taken Type Ibuprofen [Motrin 400 MG tab] 400 mg PO Q8H PRN #30 tablet 12/02/20 Unknown Rx Triamter/Hctz 37.5-25 mg 1 each PO QAM #30 tablet 12/02/20 Unknown Rx [Maxzide-25] Insulin Glargine [Lantus VIAL] 35 units SUB-Q QHS #10 ml 12/03/20 Unknown Rx Insulin Regular, Human [HumuLIN R] 0 unit SQ AC #1 vial 12/03/20 Unknown Rx levETIRAcetam [Keppra TAB] 500 mg PO BID #60 tablet 12/03/20 Unknown Rx Dicyclomine [Bentyl] 10 mg PO QID PRN #28 capsule 10/14/21 Unknown Rx Famotidine [Pepcid] 40 mg PO QHS #30 tab 10/14/21 Unknown Rx Losartan [Cozaar] 12.5 mg PO QDAY #30 tablet 10/14/21 Unknown Rx amLODIPine 5 mg PO QDAY #30 tablet 10/14/21 Unknown Rx predniSONE [Deltasone] 20 mg PO DAILY #5 tablet 11/15/21 Unknown Rx Gabapentin 300 mg PO BID #60 cap 12/22/21 Unknown Rx methOCARBAMOL [Robaxin TAB] 750 mg PO Q8H PRN #30 tab 12/22/21 Unknown Rx Allergies Allergy/AdvReac Type Severity Reaction Status Date / Time No Known Allergies Allergy Verified 12/30/21 10:01 ED Review of Systems ROS: Stated complaint: AMS Other details as noted in HPI Comment: All other systems reviewed and negative Constitutional: denies: chills, fever Respiratory: denies: cough, shortness of breath, SOB with exertion Cardiovascular: denies: chest pain, palpitations Gastrointestinal: denies: abdominal pain, nausea, vomiting Musculoskeletal: denies: back pain Neurological: weakness. denies: headache, numbness, paresthesias, confusion, abnormal gait ED Past Medical Hx - Past Medical History Hx Hypertension: Yes Hx Diabetes: Yes Hx Renal Disease: Yes (CKD stage II) Hx Seizures: Yes Hx Asthma: Yes Additional medical history: Fibromyalgia - Surgical History Hx Cholecystectomy: Yes Additional Surgical History: EYE SURGERY - Social History Smoking Status: Never Smoker Substance Use Type: None - Medications Home Medications: Home Medications Medication Instructions Recorded Confirmed Last Taken Type Albuterol Sulfate [Albuterol 0.63% 0.63 mg IH TID PRN 12/01/20 12/01/20 Unknown History NEBS] Budesonide/Formoterol Fumarate 10.2 gm IH DAILY 12/01/20 12/01/20 Unknown Hist ory [Symbicort 160-4.5 Mcg Inhaler] Montelukast [Singulair] 10 mg PO QPM 12/01/20 12/01/20 Unknown History Ibuprofen [Motrin 400 MG tab] 400 mg PO Q8H PRN #30 tablet 12/02/20 Unknown Rx Triamter/Hctz 37.5-25 mg 1 each PO QAM #30 tablet 12/02/20 Unknown Rx [Maxzide-25] Insulin Glargine [Lantus VIAL] 35 units SUB-Q QHS #10 ml 12/03/20 Unknown Rx Insulin Regular, Human [HumuLIN R] 0 unit SQ AC #1 vial 12/03/20 Unknown Rx levETIRAcetam [Keppra TAB] 500 mg PO BID #60 tablet 12/03/20 Unknown Rx Dicyclomine [Bentyl] 10 mg PO QID PRN #28 capsule 10/14/21 Unknown Rx Famotidine [Pepcid] 40 mg PO QHS #30 tab 10/14/21 Unknown Rx Losartan [Cozaar] 12.5 mg PO QDAY #30 tablet 10/14/21 Unknown Rx amLODIPine 5 mg PO QDAY #30 tablet 10/14/21 Unknown Rx predniSONE [Deltasone] 20 mg PO DAILY #5 tablet 11/15/21 Unknown Rx Gabapentin 300 mg PO BID #60 cap 12/22/21 Unknown Rx methOCARBAMOL [Robaxin TAB] 750 mg PO Q8H PRN #30 tab 12/22/21 Unknown Rx ED Physical Exam - General Limitations: Altered Mental Status General appearance: alert, in no apparent distress - Head Head exam: Present: atraumatic, normocephalic, normal inspection - Eye Eye exam: Present: normal appearance - ENT ENT exam: Present: normal exam, normal orophraynx, mucous membranes moist - Neck Neck exam: Present: normal inspection, full ROM. Absent: tenderness, meningismus - Respiratory Respiratory exam: Present: normal lung sounds bilaterally - Cardiovascular Cardiovascular Exam: Present: regular rate, normal rhythm, normal heart sounds - GI/Abdominal GI/Abdominal exam: Present: soft, normal bowel sounds. Absent: distended, tenderness, guarding, rebound, rigid, organomegaly, mass, bruit, pulsatile mass, hernia - Extremities Exam Extremities exam: Present: normal inspection, full ROM, normal capillary refill. Absent: tenderness, pedal edema, joint swelling, calf tenderness - Back Exam Back exam: Present: normal inspection, full ROM. Absent: CVA tenderness (R), CVA tenderness (L) - Neurological Exam Neurological exam: Present: alert, oriented X3, CN II-XII intact, normal gait, reflexes normal. Absent: motor sensory deficit - Psychiatric Psychiatric exam: Present: normal mood - Skin Skin exam: Present: warm, intact, normal color ED Course Vital Signs 12/30/21 12/30/21 12/30/21 09:59 10:08 10:30 Temperature 98.4 F Pulse Rate 112 H Respiratory Rate Blood Pressure Blood Pressure 240/140 182/104 [Left] O2 Sat by Pulse 98 98 Oximetry 12/30/21 12/30/21 12/30/21 10:45 11:00 11:10 Temperature Pulse Rate 102 H 111 H Respiratory 11 L 17 Rate Blood Pressure Blood Pressure 192/111 [Left] O2 Sat by Pulse 98 97 Oximetry 12/30/21 12/30/21 12/30/21 11:16 11:30 11:46 Temperature Pulse Rate 103 H 103 H 102 H Respiratory 16 15 12 Rate Blood Pressure 194/106 194/106 194/106 Blood Pressure [Left] O2 Sat by Pulse 99 97 99 Oximetry 12/30/21 12/30/21 12/30/21 12:00 12:16 12:30 Temperature Pulse Rate 98 H 97 H 97 H Respiratory 14 13 13 Rate Blood Pressure 194/106 194/106 194/106 Blood Pressure [Left] O2 Sat by Pulse 98 96 97 Oximetry 12/30/21 12/30/21 12/30/21 12:46 13:00 13:16 Temperature Pulse Rate 101 H 96 H 91 H Respiratory 22 13 13 Rate Blood Pressure 194/106 194/106 194/106 Blood Pressure [Left] O2 Sat by Pulse 97 98 97 Oximetry 12/30/21 12/30/21 13:30 13:46 Temperature Pulse Rate 87 88 Respiratory 13 14 Rate Blood Pressure 194/106 132/70 Blood Pressure [Left] O2 Sat by Pulse 98 99 Oximetry - Lab Data Result diagrams: 12/30/21 10:27 12/30/21 10:27 Lab Results 12/30/21 12/30/21 12/30/21 Range/Units 10:27 10:27 10:27 WBC 11.3 H (4.5-11.0) K/mm3 RBC 5.22 H (3.65-5.03) M/mm3 Hgb 13.3 (10.1-14.3) gm/dl Hct 40.3 (30.3-42.9) % MCV 77 L (79-97) fl MCH 25 L (28-32) pg MCHC 33 (30-34) % RDW 15.3 H (13.2-15.2) % Plt Count 356 (140-440) K/mm3 Lymph % (Auto) 9.0 L (13.4-35.0) % [place] % (Auto) 3.8 (0.0-7.3) % Eos % (Auto) 0.1 (0.0-4.3) % Baso % (Auto) 0.7 (0.0-1.8) % Lymph # (Auto) 1.0 L (1.2-5.4) K/mm3 [place] # (Auto) 0.4 (0.0-0.8) K/mm3 Eos # (Auto) 0.0 (0.0-0.4) K/mm3 Baso # (Auto) 0.1 (0.0-0.1) K/mm3 Seg Neutrophils % 86.4 H (40.0-70.0) % Seg Neutrophils # 9.8 H (1.8-7.7) K/mm3 PT 13.1 (12.2-14.9) Sec. INR 0.90 (0.87-1.13) APTT 22.8 L (24.2-36.6) Sec. Sodium 135 L (137-145) mmol/L Potassium 3.7 (3.6-5.0) mmol/L Chloride 97.0 L (98-107) mmol/L Carbon Dioxide 21 L (22-30) mmol/L Anion Gap 21 mmol/L BUN 29 H (7-17) mg/dL Creatinine 2.3 H (0.6-1.2) mg/dL Estimated GFR 22 ml/min BUN/Creatinine Ratio 13 % Glucose 403 H (65-100) mg/dL Lactic Acid (0.7-2.0) mmol/L Calcium 9.4 (8.4-10.2) mg/dL Total Bilirubin 0.20 (0.1-1.2) mg/dL Direct Bilirubin < 0.2 (0-0.2) mg/dL Indirect Bilirubin 0.0 mg/dL AST 11 (5-40) units/L ALT 12 (7-56) units/L Alkaline Phosphatase 81 (35-129) units/L Total Creatine Kinase 120 (30-135) units/L Troponin T 0.062 H (0.00-0.029) ng/mL Total Protein 6.7 (6.3-8.2) g/dL Albumin 3.4 L (3.9-5) g/dL Albumin/Globulin Ratio 1.0 % Triglycerides 327 H (2-149) mg/dL Cholesterol 408 H (50-199) mg/dL LDL Cholesterol Direct 299 H (50-130) mg/dL HDL Cholesterol 59 (40-59) mg/dL Cholesterol/HDL Ratio 6.91 % TSH (0.270-4.200) mlU/mL Plasma/Serum Alcohol (0-0.07) % 12/30/21 12/30/21 12/30/21 Range/Units 10:27 10:27 10:27 WBC (4.5-11.0) K/mm3 RBC (3.65-5.03) M/mm3 Hgb (10.1-14.3) gm/dl Hct (30.3-42.9) % MCV (79-97) fl MCH (28-32) pg MCHC (30-34) % RDW (13.2-15.2) % Plt Count (140-440) K/mm3 Lymph % (Auto) (13.4-35.0) % [place] % (Auto) (0.0-7.3) % Eos % (Auto) (0.0-4.3) % Baso % (Auto) (0.0-1.8) % Lymph # (Auto) (1.2-5.4) K/mm3 [place] # (Auto) (0.0-0.8) K/mm3 Eos # (Auto) (0.0-0.4) K/mm3 Baso # (Auto) (0.0-0.1) K/mm3 Seg Neutrophils % (40.0-70.0) % Seg Neutrophils # (1.8-7.7) K/mm3 PT (12.2-14.9) Sec. INR (0.87-1.13) APTT (24.2-36.6) Sec. Sodium (137-145) mmol/L Potassium (3.6-5.0) mmol/L Chloride (98-107) mmol/L Carbon Dioxide (22-30) mmol/L Anion Gap mmol/L BUN (7-17) mg/dL Creatinine (0.6-1.2) mg/dL Estimated GFR ml/min BUN/Creatinine Ratio % Glucose (65-100) mg/dL Lactic Acid 1.80 (0.7-2.0) mmol/L Calcium (8.4-10.2) mg/dL Total Bilirubin (0.1-1.2) mg/dL Direct Bilirubin (0-0.2) mg/dL Indirect Bilirubin mg/dL AST (5-40) units/L ALT (7-56) units/L Alkaline Phosphatase (35-129) units/L Total Creatine Kinase (30-135) units/L Troponin T (0.00-0.029) ng/mL Total Protein (6.3-8.2) g/dL Albumin (3.9-5) g/dL Albumin/Globulin Ratio % Triglycerides (2-149) mg/dL Cholesterol (50-199) mg/dL LDL Cholesterol Direct (50-130) mg/dL HDL Cholesterol (40-59) mg/dL Cholesterol/HDL Ratio % TSH 1.690 (0.270-4.200) mlU/mL Plasma/Serum Alcohol < 0.01 (0-0.07) % - Radiology Data Radiology results: report reviewed - Medical Decision Making Patient is 56-year-old female with history of diabetes, hypertension and seizure. Patient brought to the emergency room via EMS from home for evaluation of altered mental status and decreased responsiveness. Patient son found patient in her bed naked with decreased responsiveness. EMS reported that patient ambulated down from a posterior with assistance of her sister. Stroke scale was 0. Upon arrival to the ER patient is alert, oriented x3 and able to tell the whole story. She is complaining of left sided pain extending from the chest all the way down to the back. Patient stated that she had an MRI done by her primary care physician but she did not have the results yet. CT brain is unremarkable. Labs reviewed and showed leukocytosis. Creatinine is 2.3 previous creatinine was 1.4. Acute renal failure most likely secondary to decreased p.o. intake. Patient also found to be hyperglycemic with a blood glucose of 408. Patient received insulin. CT abdomen and pelvis showed uterine fibroid. I discussed the patient with Dr. Fair, he agreed to admit the patient to medical service for further management. Critical Care Time: Yes Critical care time in (mins) excluding proc time.: 35 Critical care attestation.: If time is entered above; I have spent that time in minutes in the direct care of this critically ill patient, excluding procedure time. ED Disposition Clinical Impression: Altered mental status, Acute hyperglycemia, Acute renal failure Disposition: ADMITTED INPATIENT Is pt being admited?: Yes Condition: Stable
--- NOTE | 2021-12-30 10:46 | XRay Report ---
CHEST 1 VIEW INDICATION / CLINICAL INFORMATION: Altered Mental Status. COMPARISON: None available. FINDINGS: SUPPORT DEVICES: None. HEART / MEDIASTINUM: No significant abnormality. LUNGS / PLEURA: No significant pulmonary or pleural abnormality. No pneumothorax. ADDITIONAL FINDINGS: No significant additional findings. IMPRESSION: 1. No acute findings. No interval change. Signer Name: Roxane Espinosa MD Signed: 12/30/2021 10:41 AM Workstation Name: [id number]
--- NOTE | 2021-12-30 11:20 | Cat Scan Report ---
CT head/brain wo con INDICATION / CLINICAL INFORMATION: Altered Mental Status. TECHNIQUE: Axial CT imaging of the brain was obtained without contrast. Coronal and sagittal reformatted imaging obtained and reviewed. All CT scans at this location are performed using CT dose reduction for ALAR A by means of automated exposure control. COMPARISON: 12/01/2020 FINDINGS: No intracranial hemorrhage, mass, or midline shift is noted. No extra-axial fluid collection or sugge stion of acute territorial infarction. The ventricular system and basilar cisterns are within normal limits. Mild age-appropriate atrophy noted. Visualized paranasal sinuses and mastoid air cells are well aerated and clear. No calvarial abnormali ty. IMPRESSION: 1. No acute intracranial abnormality. Signer Name: Roxane Espinosa MD Signed: 12/30/2021 11:16 AM Workstation Name: [id number]
[2021-12-30 11:39] LABS: Basophils # (Auto) 0.1 K/mm3 (0.0-0.1); Basophils % (Auto) 0.7 % (0.0-1.8); Eosinophils % (Auto) 0.1 % (0.0-4.3); Hematocrit 40.3 % (30.3-42.9); Hemoglobin 13.3 gm/dl (10.1-14.3); Mean Corpuscular HGB Conc 33 % (30-34); Mean Corpuscular Volume 77 fl (79-97); Monocytes # (Auto) 0.4 K/mm3 (0.0-0.8); Monocytes % (Auto) 3.8 % (0.0-7.3); Platelet Count 356 K/mm3 (140-440); Red Blood Count 5.22 M/mm3 (3.65-5.03); Red Cell Distribution Width 15.3 % (13.2-15.2)
[2021-12-30 11:54] LABS: INR 0.9 (0.87-1.13); Partial Thromboplastin Time 22.8 Sec. (24.2-36.6)
[2021-12-30 11:59] LABS: Alanine Aminotransferase 12 units/L (7-56); Albumin 3.4 g/dL (3.9-5); BUN/Creatinine Ratio 13; Blood Urea Nitrogen 29 mg/dL (7-17); Calcium 9.4 mg/dL (8.4-10.2); Hemolysis Index 9
[2021-12-30 12:01] LABS: Bilirubin,Direct < 0.2 mg/dL (0-0.2)
[2021-12-30] MEDS ORDERED: INSULIN REGULAR, HUMAN 100 UNITS/1 ML IV ONE (12:12)
--- NOTE | 2021-12-30 14:39 | Cat Scan Report ---
CT abdomen pelvis wo con INDICATION / CLINICAL INFORMATION: ABDOMINAL PAIN WO CONTRAST. TECHNIQUE: Axial CT imaging of abdomen and pelvis was obtained without IV contrast. Coronal and sagittal reforma tted imaging obtained and reviewed. All CT scans at this location are performed using CT dose reduct ion for ALARA by means of automated exposure control. COMPARISON: Prior CT 12/22/2021 FINDINGS: CT abdomen without contrast demonstrates grossly normal appearance of the liver, spleen, pancreas, ki dneys, and adrenal glands. Prior cholecystectomy. No intrarenal calculi or hydronephrosis noted. Abdo ramana aorta is of normal size. CT pelvis without contrast demonstrates prominently enlarged uterus containing a few calcified fibroi ds. The size of the uterus is not particularly changed. Otherwise, no pelvic mass, free fluid, or foc al inflammatory change noted. A normal appendix is present within the right midabdomen. GI tract is g rossly normal. Visualized lung bases are clear. No acute osseous abnormality. IMPRESSION: 1. No acute finding within the abdomen or pelvis. 2. Enlarged myomatous uterus unchanged from most recent CT. Signer Name: Roxane Espinosa MD Signed: 12/30/2021 2:35 PM Workstation Name: [id number]
[2021-12-30] MEDS ORDERED: ASPIRIN 81 MG TAB CHEW PO ONE (14:45)
[2021-12-30 14:50] LABS: Chol/HDL Ratio 6.91 %; HDL Cholesterol 59 mg/dL (40-59); LDL Cholesterol,Direct 299 mg/dL (50-130)
--- NOTE | 2021-12-30 15:05 | History and Physical Report ---
History of Present Illness Chief complaint: She was confused and not acting right History of present illness: 56 YO Female with DM complicated by Neuropathy, HTN, Mild Intermittent Asthma, Seasonal Allergies, Seizure Disorder, Fibromyalgia, Malnutrition presents to ED for evaluation. Patient is lethargic with diminished cognition at the time my evaluation and to provide history. Patient history provided by EMS staff, ED staff, as well as the patient's son who was made available by telephone for interview. As per son he went to the patient's home to do a well check. Upon arrival the patient was found to have decreased responsiveness, lying in bed with overlying. EMS was notified and upon arrival the patient was found to be in distress and subsequently transported to [facility] for further care and evaluation of the aforementioned symptoms. The patient was seen and evaluated in the emergency department. All lab and imaging studies reviewed. Patient found to have a blood pressure of 240/140 mmHg with clinical symptoms consistent with hypertensive encephalopathy, systemic inflammatory response syndrome, acute kidney injury, hyperosmolar hyperglycemic state, and hyponatremia. Patient treated with IV fluid resuscitation therapy, and empiric IV antibiotic therapy. Patient admitted to telemetry due to increased risk of worsening symptoms. Prior admission on 12/01/2020 reviewed. All medication listed at time of admission has been reconciled. Advanced care planning conducted in ED. No reports of fever, chills, chest pain, palpitation, adductive cough, skin rash, recent contact, known exposure to COVID-19. Patient is lethargic with diminished cognition at the time of evaluation but has a positive gag reflex and is able to protect her airway without difficulty. Past History Past Medical History: diabetes, hypertension, seizures, other (See HPI) Past Surgical History: cholecystectomy, , Other (Surgery) Social history: single, Lives alone. denies: smoking, alcohol abuse, prescription drug abuse Family history: diabetes, hypertension Medications and Allergies Allergies Allergy/AdvReac Type Severity Reaction Status Date / Time No Known Allergies Allergy Verified 12/30/21 10:01 Home Medications Medication Instructions Recorded Confirmed Last Taken Type Albuterol Sulfate [Albuterol 0.63% 0.63 mg IH TID PRN 12/01/20 12/01/20 Unknown History NEBS] Budesonide/Formoterol Fumarate 10.2 gm IH DAILY 12/01/20 12/01/20 Unknown History [Symbicort 160-4.5 Mcg Inhaler] Montelukast [Singulair] 10 mg PO QPM 12/01/20 12/01/20 Unknown History Ibuprofen [Motrin 400 MG tab] 400 mg PO Q8H PRN #30 tablet 12/02/20 Unknown Rx Triamter/Hctz 37.5-25 mg 1 each PO QAM #30 tablet 12/02/20 Unknown Rx [Maxzide-25] Insulin Glargine [Lantus VIAL] 35 units SUB-Q QHS #10 ml 12/03/20 Unknown Rx Insulin Regular, Human [HumuLIN R] 0 unit SQ AC #1 vial 12/03/20 Unknown Rx levETIRAcetam [Keppra TAB] 500 mg PO BID #60 tablet 12/03/20 Unknown Rx Dicyclomine [Bentyl] 10 mg PO QID PRN #28 capsule 10/14/21 Unknown Rx Famotidine [Pepcid] 40 mg PO QHS #30 tab 10/14/21 Unknown Rx Losartan [Cozaar] 12.5 mg PO QDAY #30 tablet 10/14/21 Unknown Rx amLODIPine 5 mg PO QDAY #30 tablet 10/14/21 Unknown Rx predniSONE [Deltasone] 20 mg PO DAILY #5 tablet 11/15/21 Unknown Rx Gabapentin 300 mg PO BID #60 cap 12/22/21 Unknown Rx methOCARBAMOL [Robaxin TAB] 750 mg PO Q8H PRN #30 tab 12/22/21 Unknown Rx Active Meds: Active Medications Sodium Chloride (Nacl 0.9% 1000 Ml) 1,000 mls @ 250 mls/hr IV ONCE ONE Stop: 12/30/21 16:03 Last Admin: 12/30/21 13:04 Dose: 250 mls/hr Review of Systems ROS unobtainable: due to mental status Exam - Constitutional Vitals: Temp Pulse Resp BP Pulse Ox 98.4 F 88 14 132/70 99 12/30/21 09:59 12/30/21 13:46 12/30/21 13:46 12/30/21 13:46 12/30/21 13:46 General appearance: Present: mild distress, cachectic - EENT Eyes: Present: PERRL ENT: clear oral mucosa, hearing decreased - Neck Neck: Present: supple, normal ROM - Respiratory Respiratory effort: normal Respiratory: bilateral: CTA - Cardiovascular Heart Sounds: Present: S1 & S2. Absent: rub, click - Extremities Extremities: pulses symmetrical, No edema Peripheral Pulses: within normal limits - Abdominal General gastrointestinal: Present: soft, non-tender, non-distended, normal bowel sounds Female genitourinary: Present: normal - Integumentary Integumentary: Present: dry, clammy, decreased turgor - Musculoskeletal Musculoskeletal: generalized weakness - Psychiatric Psychiatric: no appropriate mood/affect, no intact judgment & insight, no memory intact - Neurologic Neurologic: CNII-XII intact, no focal deficits, moves all extremities, no gait normal HEART Score - HEART Score Troponin: Troponin T 0.062 ng/mL (0.00-0.029) H 12/30/21 10:27 Results - Labs CBC & Chem 7: 12/30/21 10:27 12/30/21 10:27 Labs: Abnormal lab results 12/30/21 12/30/21 12/30/21 Range/Units 10:27 10:27 10:27 WBC 11.3 H (4.5-11.0) K/mm3 RBC 5.22 H (3.65-5.03) M/mm3 MCV 77 L (79-97) fl MCH 25 L (28-32) pg RDW 15.3 H (13.2-15.2) % Lymph % (Auto) 9.0 L (13.4-35.0) % Lymph # (Auto) 1.0 L (1.2-5.4) K/mm3 Seg Neutrophils % 86.4 H (40.0-70.0) % Seg Neutrophils # 9.8 H (1.8-7.7) K/mm3 APTT 22.8 L (24.2-36.6) Sec. Sodium 135 L (137-145) mmol/L Chloride 97.0 L (98-107) mmol/L Carbon Dioxide 21 L (22-30) mmol/L BUN 29 H (7-17) mg/dL Creatinine 2.3 H (0.6-1.2) mg/dL Glucose 403 H (65-100) mg/dL Troponin T 0.062 H (0.00-0.029) ng/mL Albumin 3.4 L (3.9-5) g/dL Triglycerides 327 H (2-149) mg/dL Cholesterol 408 H (50-199) mg/dL LDL Cholesterol Direct 299 H (50-130) mg/dL Assessment and Plan - Patient Problems (1) Hypertensive encephalopathy syndrome Current Visit: Yes Status: Acute Plan to address problem: Blood pressure monitoring every shift, continue prehospital antihypertensive therapy, neuro check, seizure cautions, aspiration precautions, fall precautions, supportive care. CT scan brain, (2) Hyperosmolar hyperglycemic state (HHS) Current Visit: Yes Status: Acute Plan to address problem: IV fluid resuscitation therapy, insulin protocol, Accu-Chek, hypoglycemia protocol. (3) SIRS (systemic inflammatory response syndrome) Current Visit: Yes Status: Acute Plan to address problem: CBC, CMP, empiric IV antibiotic therapy, IV fluid resuscitation therapy, supportive care. (4) TASIA (acute kidney injury) Current Visit: Yes Status: Acute Plan to address problem: IV fluid resuscitation therapy, monitor fluid balance, monitor urine output every shift, repeat BMP in a.m. to monitor serum creatinine as well as GFR. (5) Hyponatremia syndrome Current Visit: Yes Status: Acute Plan to address problem: IV fluid resuscitation therapy, BMP, repeat BMP in a.m., (6) Malnutrition Current Visit: Yes Status: Acute Qualifiers: Malnutrition type: protein-calorie malnutrition Protein-calorie malnutrition severity: moderate Qualified Code(s): E44.0 - Moderate protein- calorie malnutrition Plan to address problem: Encourage increased protein intake, dietary supplementation when awake and alert only. (7) DVT prophylaxis Current Visit: Yes Status: Acute Plan to address problem: SCD to bilateral lower extremities while in bed (8) Advance care planning Current Visit: Yes Status: Acute Plan to address problem: Disease education conducted, care plan discussed, diagnoses discussed, prognosis discussed, patient is full code, +30 minutes.
[2021-12-30] MEDS ORDERED: ALBUTEROL 2.5 MG/3 ML NEBU IH PRN (20:06)
[2021-12-30] MEDS ORDERED: ACETAMINOPHEN 325 MG TAB PO PRN (20:06)
[2021-12-30] MEDS ORDERED: ONDANSETRON 4 MG/2 ML INJ IV PRN (20:06)
[2021-12-30] MEDS ORDERED: DICYCLOMINE 10 MG CAP PO PRN (20:09)
[2021-12-30] MEDS ORDERED: SODIUM CHLORIDE 0.9% 1000 ML 1,000 ML IV SCH (20:15)
[2021-12-30] MEDS: levETIRAcetam 500 MG TAB PO SCH (22:00)
[2021-12-30] MEDS: FAMOTIDINE 20 MG TAB PO SCH (22:00)
[2021-12-30] MEDS: GABAPENTIN 300 MG CAP PO SCH (22:00)
[2021-12-30] MEDS ORDERED: NON-FORMULARY EACH (Famotidine [Pepcid] 40 MG Tablet) PO SCH (22:00)
[2021-12-30 22:09] LABS: Bacteria,Urine 1+ /HPF (Negative); Bilirubin,Urine NEG (Negative); Blood,Urine SM (Negative); Color,Urine Yellow (Yellow); Mucus,Urine FEW /HPF; Urobilinogen,Urine < 2.0 mg/dL (<2.0)
[2021-12-30 22:12] LABS: Protein,Urine >500 mg/dL (Negative)
[2021-12-30 22:16] LABS: Amphetamine Screen,Urine PRESUMPTIVE NEGATIVE; Benzodiazepines Screen,Urine PRESUMPTIVE NEGATIVE; Cannabinoid Screen,Urine PRESUMPTIVE POSITIVE; Cocaine Screen,Urine PRESUMPTIVE NEGATIVE; Methadone Screen,Urine PRESUMPTIVE NEGATIVE; Opiate Screen,Urine PRESUMPTIVE NEGATIVE
[2021-12-31] MEDS: oxyCODONE /ACETAMINOPHEN 5-325MG TAB PO PRN ×2 (02:16→17:43)
[2021-12-31 06:50] LABS: Calcium 8.1 mg/dL (8.4-10.2)
[2021-12-31 06:54] LABS: Basophils % (Auto) 0.6 % (0.0-1.8); Eosinophils # (Auto) 0.2 K/mm3 (0.0-0.4); Eosinophils % (Auto) 2.1 % (0.0-4.3); Hematocrit 34.9 % (30.3-42.9); Hemoglobin 11.5 gm/dl (10.1-14.3); Lymphocytes # (Auto) 1.9 K/mm3 (1.2-5.4); Lymphocytes % (Auto) 24.5 % (13.4-35.0); Mean Corpuscular HGB Conc 33 % (30-34); Mean Corpuscular Volume 77 fl (79-97); Monocytes # (Auto) 0.6 K/mm3 (0.0-0.8); Monocytes % (Auto) 8.2 % (0.0-7.3); Platelet Count 308 K/mm3 (140-440); Red Blood Count 4.56 M/mm3 (3.65-5.03); Red Cell Distribution Width 15.1 % (13.2-15.2)
[2021-12-31] MEDS: HYDROmorphone 1 MG/1 ML INJ IV PRN ×3 (09:22→22:28)
[2021-12-31] MEDS: levETIRAcetam 500 MG TAB PO SCH ×2 (09:57→22:30)
[2021-12-31] MEDS: LOSARTAN 25 MG TAB PO SCH (09:58)
[2021-12-31] MEDS: predniSONE 20 MG TAB PO SCH (09:59)
[2021-12-31] MEDS: amLODIPine 5 MG TAB PO SCH (09:59)
[2021-12-31] MEDS: GABAPENTIN 300 MG CAP PO SCH ×2 (10:00→22:37)
[2021-12-31] MEDS ORDERED: TRIAMTER/HCTZ 37.5-25 MG TAB PO SCH (10:00)
--- NOTE | 2021-12-31 10:12 | Progress Note ---
Assessment and Plan Assessment and plan: Chest pain. Elevated troponin Chronic left lower back pain Diabetes mellitus type 2, uncontrolled Acute kidney injury secondary to vasomotor nephropathy Hyponatremia. Etiology likely secondary to diuretics 12/31/2021. CT of the abdomen and pelvis shows no evidence of hydronephrosis or renal calculi. Etiology of acute kidney injury is likely related to vasomotor nephropathy/dehydration. Hold diuretics. Continue IV fluid hydration. Nephrology consulted. Consult cardiology for chest pain and elevated troponin. Patient had elevated BG. We will resume long-acting insulin 30 units every mo rning. History Interval history: Patient complains of left lower back pain that radiates to the chest Hospitalist Physical - Constitutional Vitals: Temp Pulse Resp BP Pulse Ox 98.1 F 90 20 164/64 97 12/31/21 04:31 12/31/21 04:31 12/31/21 04:31 12/31/21 04:31 12/31/21 04:31 General appearance: Present: mild distress, cachectic - EENT Eyes: Present: PERRL, EOM intact ENT: hearing intact, clear oral mucosa, dentition normal - Neck Neck: Present: supple, normal ROM - Respiratory Respiratory effort: normal Respiratory: bilateral: CTA - Cardiovascular Rhythm: regular Heart Sounds: Present: S1 & S2. Absent: gallop, rub - Extremities Extremities: no ischemia, No edema, Full ROM - Abdominal General gastrointestinal: soft, non-tender, non-distended, normal bowel sounds - Integumentary Integumentary: Present: clear, warm, dry - Neurologic Neurologic: CNII-XII intact, moves all extremities HEART Score - HEART Score Troponin: Troponin T 0.062 ng/mL (0.00-0.029) H 12/30/21 10:27 Results - Labs CBC & Chem 7: 12/31/21 05:20 12/31/21 05:20 Labs: Laboratory Last Values WBC 7.9 K/mm3 (4.5-11.0) 12/31/21 05:20 RBC 4.56 M/mm3 (3.65-5.03) 12/31/21 05:20 Hgb 11.5 gm/dl (10.1-14.3) 12/31/21 05:20 Hct 34.9 % (30.3-42.9) 12/31/21 05:20 MCV 77 fl (79-97) L 12/31/21 05:20 MCH 25 pg (28-32) L 12/31/21 05:20 MCHC 33 % (30-34) 12/31/21 05:20 RDW 15.1 % (13.2-15.2) 12/31/21 05:20 Plt Count 308 K/mm3 (140-440) 12/31/21 05:20 Lymph % (Auto) 24.5 % (13.4-35.0) 12/31/21 05:20 [place] % (Auto) 8.2 % (0.0-7.3) H 12/31/21 05:20 Eos % (Auto) 2.1 % (0.0-4.3) 12/31/21 05:20 Baso % (Auto) 0.6 % (0.0-1.8) 12/31/21 05:20 Lymph # (Auto) 1.9 K/mm3 (1.2-5.4) 12/31/21 05:20 [place] # (Auto) 0.6 K/mm3 (0.0-0.8) 12/31/21 05:20 Eos # (Auto) 0.2 K/mm3 (0.0-0.4) 12/31/21 05:20 Baso # (Auto) 0.0 K/mm3 (0.0-0.1) 12/31/21 05:20 Seg Neutrophils % 64.6 % (40.0-70.0) 12/31/21 05:20 Seg Neutrophils # 5.1 K/mm3 (1.8-7.7) 12/31/21 05:20 PT 13.1 Sec. (12.2-14.9) 12/30/21 10:27 INR 0.90 (0.87-1.13) 12/30/21 10:27 APTT 22.8 Sec. (24.2-36.6) L 12/30/21 10:27 Sodium 140 mmol/L (137-145) 12/31/21 05:20 Potassium 3.5 mmol/L (3.6-5.0) L 12/31/21 05:20 Chloride 104.6 mmol/L (98-107) 12/31/21 05:20 Carbon Dioxide 24 mmol/L (22-30) 12/31/21 05:20 Anion Gap 15 mmol/L 12/31/21 05:20 BUN 27 mg/dL (7-17) H 12/31/21 05:20 Creatinine 2.2 mg/dL (0.6-1.2) H 12/31/21 05:20 Estimated GFR 23 ml/min 12/31/21 05:20 BUN/Creatinine Ratio 12 % 12/31/21 05:20 Glucose 241 mg/dL (65-100) H 12/31/21 05:20 POC Glucose 193 mg/dL (70-105) H 12/31/21 08:22 Lactic Acid 1.80 mmol/L (0.7-2.0) 12/30/21 10:27 Calcium 8.1 mg/dL (8.4-10.2) L 12/31/21 05:20 Total Bilirubin 0.20 mg/dL (0.1-1.2) 12/30/21 10:27 Direct Bilirubin < 0.2 mg/dL (0-0.2) 12/30/21 10:27 Indirect Bilirubin 0.0 mg/dL 12/30/21 10:27 AST 11 units/L (5-40) 12/30/21 10:27 ALT 12 units/L (7-56) 12/30/21 10:27 Alkaline Phosphatase 81 units/L (35-129) 12/30/21 10:27 Total Creatine Kinase 120 units/L (30-135) 12/30/21 10:27 Troponin T 0.062 ng/mL (0.00-0.029) H 12/30/21 10:27 Total Protein 6.7 g/dL (6.3-8.2) 12/30/21 10:27 Albumin 3.4 g/dL (3.9-5) L 12/30/21 10:27 Albumin/Globulin Ratio 1.0 % 12/30/21 10:27 Triglycerides 327 mg/dL (2-149) H 12/30/21 10:27 Cholesterol 408 mg/dL (50-199) H 12/30/21 10:27 LDL Cholesterol Direct 299 mg/dL (50-130) H 12/30/21 10:27 HDL Cholesterol 59 mg/dL (40-59) 12/30/21 10:27 Cholesterol/HDL Ratio 6.91 % 12/30/21 10:27 TSH 1.690 mlU/mL (0.270-4.200) 12/30/21 10:27 Urine Color Yellow (Yellow) 12/30/21 Unknown Urine Turbidity Clear (Clear) 12/30/21 Unknown Urine pH 6.0 (5.0-7.0) 12/30/21 Unknown Ur Specific [employer] 1.025 (1.003-1.030) 12/30/21 Unknown Urine Protein >500 mg/dL (Negative) 12/30/21 Unknown Urine Glucose (UA) >=500 mg/dL (Negative) 12/30/21 Unknown Urine Ketones Tr mg/dL (Negative) 12/30/21 Unknown Urine Blood Sm (Negative) 12/30/21 Unknown Urine Nitrite Neg (Negative) 12/30/21 Unknown Urine Bilirubin Neg (Negative) 12/30/21 Unknown Urine Urobilinogen < 2.0 mg/dL (<2.0) 12/30/21 Unknown Ur Leukocyte Esterase Neg (Negative) 12/30/21 Unknown Urine WBC (Auto) 14.0 /HPF (0.0-6.0) H 12/30/21 Unknown Urine RBC (Auto) 1.0 /HPF (0.0-6.0) 12/30/21 Unknown U Epithel Cells (Auto) 3.0 /HPF (0-13.0) 12/30/21 Unknown Urine Bacteria (Auto) 1+ /HPF (Negative) 12/30/21 Unknown Urine Mucus Few /HPF 12/30/21 Unknown Urine Opiates Screen Presumptive negative 12/30/21 Unknown Urine Methadone Screen Presumptive negative 12/30/21 Unknown Ur Barbiturates Screen Presumptive negative 12/30/21 Unknown Ur Phencyclidine Scrn Presumptive negative 12/30/21 Unknown Ur Amphetamines Screen Presumptive negative 12/30/21 Unknown U Benzodiazepines Scrn Presumptive negative 12/30/21 Unknown Urine Cocaine Screen Presumptive negative 12/30/21 Unknown U Marijuana (THC) Screen Presumptive positive 12/30/21 Unknown Drugs of Abuse Note Disclamer 12/30/21 Unknown Plasma/Serum Alcohol < 0.01 % (0-0.07) 12/30/21 10:27 Microbiology: Microbiology 12/30/21 10:27 Peripheral/Venous Blood Culture - Preliminary Culture in Progress 12/30/21 10:27 Peripheral/Venous Blood Culture - Preliminary Culture in Progress [place]/IV: Voiding Method Toilet Active Medications - Current Medications Current Medications: Generic Name Dose Route Start Last Admin Trade Name Freq PRN Reason Stop Dose Admin Acetaminophen 650 mg 12/30/21 20:06 12/31/21 05:48 Acetaminophen 325 Mg Tab PO 650 mg Q4H PRN Administration Pain MILD(1-3)/Fever >100.5/PENA Albuterol 2.5 mg 12/30/21 20:06 Albuterol 2.5 Mg/3 Ml Nebu IH Q4HRT PRN Shortness Of Breath Amlodipine Besylate 5 mg 12/31/21 10:00 12/31/21 09:59 Amlodipine 5 Mg Tab PO 5 mg QDAY DORON Administration Dicyclomine HCl 10 mg 12/30/21 20:09 Dicyclomine 10 Mg Cap PO QID PRN abd pain Famotidine 40 mg 12/30/21 22:00 12/30/21 22:00 Famotidine 20 Mg Tab PO 40 mg HS DORON Administration Gabapentin 300 mg 12/30/21 22:00 12/31/21 10:00 Gabapentin 300 Mg Cap PO Not Given BID DORON Hydromorphone HCl 0.5 mg 12/30/21 20:06 12/31/21 09:22 Hydromorphone 1 Mg/1 Ml Inj IV 0.5 mg Q13H PRN Administration Pain , Severe (7-10) Sodium Chloride 1,000 mls @ 42 mls/hr 12/30/21 20:15 12/31/21 02:07 Nacl 0.9% 1000 Ml IV 42 mls/hr DIRECT DORON Administration Levetiracetam 500 mg 12/30/21 22:00 12/31/21 09:57 Levetiracetam 500 Mg Tab PO 500 mg BID DORON Administration Losartan Potassium 12.5 mg 12/31/21 10:00 12/31/21 09:58 Losartan 25 Mg Tab PO 12.5 mg QDAY DORON Administration Methocarbamol 750 mg 12/30/21 20:09 Methocarbamol 750 Mg Tab PO Q8H PRN Muscle Spasm Montelukast Sodium 10 mg 12/31/21 18:00 Montelukast 10 Mg Tab PO QPM DORON Ondansetron HCl 4 mg 12/30/21 20:06 12/31/21 00:00 Ondansetron 4 Mg/2 Ml Inj IV 4 mg Q8H PRN Administration Nausea And Vomiting Oxycodone/Acetaminophen 1 tab 12/30/21 20:06 12/31/21 02:16 Oxycodone /Acetaminophen 5-325mg Tab PO 1 tab Q6H PRN Administration Pain, Moderate (4-6) Prednisone 20 mg 12/31/21 10:00 12/31/21 09:59 Prednisone 20 Mg Tab PO 20 mg DAILY DORON Administration Sodium Chloride 10 ml 12/30/21 22:00 12/31/21 09:59 Sodium Chloride 0.9% 10 Ml Flush Syringe IV 10 ml BID DORON Administration Sodium Chloride 10 ml 12/30/21 20:06 Sodium Chloride 0.9% 10 Ml Flush Syringe IV PRN PRN LINE FLUSH Triamterene/Hydrochlorothiazide 1 each 12/31/21 10:00 Triamter/Hctz 37.5-25 Mg Tab PO QAM DORON
[2021-12-31] MEDS: INSULIN GLARGINE 100 UNITS/ML SUB-Q SCH (11:00)
--- NOTE | 2021-12-31 11:53 | Consultation ---
History of Present Illness Consult date: 12/31/21 Requesting physician: KENYON HIDALGO Consult reason: chest pain History of present illness: CC: Chest Pain This is a 56-year-old female, unknown to our practice, with past medical history significant for fibromyalgia, diabetic neuropathy, arthritis, and hypertension who presented to the emergency room with lethargy and diminished cognition. She is now admitted to the hospital and is complaining of some chest discomfort and left sided body pain.. She states that the pain starts at her lower back and radiates up and forward to her abdomen. She also describes that the pain can initiate in her left jaw and moves all the way down the left side of her body. She states that she has chronic pain, which is always left-sided in nature. She states that she has had intermittent midsternal discomfort, that is brief. She rates it 2 out of 10 in severity. She attributes this pain to her fibromyalgia. She reports she has had ongoing pain since 2011, but it has worsened over the last 4 months. She states that morphine improves her pain. She states everything makes her pain worse. She denies shortness of breath, diaphoresis, nausea, vomiting, orthopnea, PND. She is chest pain-free currently. Cardiology is consulted for chest pain Past History Past Medical History: diabetes, hypertension, seizures, other (See HPI) Past Surgical History: cholecystectomy, , Other (Surgery) Social history: single, Lives alone. denies: smoking, alcohol abuse, prescription drug abuse Family history: diabetes, hypertension Medications and Allergies Allergies Allergy/AdvReac Type Severity Reaction Status Date / Time No Known Allergies Allergy Verified 12/30/21 10:01 Home Medications Medication Instructions Recorded Confirmed Last Taken Type Albuterol Sulfate [Albuterol 0.63% 0.63 mg IH TID PRN 12/01/20 12/31/21 Unknown History NEBS] Budesonide/Formoterol Fumarate 10.2 gm IH DAILY 12/01/20 12/31/21 Unknown History [Symbicort 160-4.5 Mcg Inhaler] Ibuprofen [Motrin 400 MG tab] 400 mg PO Q8H PRN #30 tablet 12/02/20 12/31/21 Unknown Rx levETIRAcetam [Keppra TAB] 500 mg PO BID #60 tablet 12/03/20 12/31/21 Unknown Rx Famotidine [Pepcid] 40 mg PO QHS #30 tab 10/14/21 12/31/21 Unknown Rx Losartan [Cozaar] 12.5 mg PO QDAY #30 tablet 10/14/21 12/31/21 Unknown Rx amLODIPine 5 mg PO QDAY #30 tablet 10/14/21 12/31/21 Unknown Rx predniSONE [Deltasone] 20 mg PO DAILY #5 tablet 11/15/21 12/31/21 Unknown Rx Gabapentin 300 mg PO BID #60 cap 12/22/21 12/31/21 Unknown Rx methOCARBAMOL [Robaxin TAB] 750 mg PO Q8H PRN #30 tab 12/22/21 12/31/21 Unknown Rx Insulin Detemir [Levemir VIAL] 30 units SQ QAM 12/31/21 12/31/21 Unknown History Insulin Regular, Human [Novolin R] 7 units SQ TID 12/31/21 12/31/21 Unknown History Active Meds: Active Medications Acetaminophen (Acetaminophen 325 Mg Tab) 650 mg PO Q4H PRN PRN Reason: Pain MILD(1-3)/Fever >100.5/PENA Last Admin: 12/31/21 05:48 Dose: 650 mg Albuterol (Albuterol 2.5 Mg/3 Ml Nebu) 2.5 mg IH Q4HRT PRN PRN Reason: Shortness Of Breath Amlodipine Besylate (Amlodipine 5 Mg Tab) 5 mg PO QDAY [facility] Last Admin: 12/31/21 09:59 Dose: 5 mg Dicyclomine HCl (Dicyclomine 10 Mg Cap) 10 mg PO QID PRN PRN Reason: abd pain Famotidine (Famotidine 20 Mg Tab) 40 mg PO HS [facility] Last Admin: 12/30/21 22:00 Dose: 40 mg Gabapentin (Gabapentin 300 Mg Cap) 300 mg PO BID [facility] Last Admin: 12/31/21 10:00 Dose: Not Given Hydromorphone HCl (Hydromorphone 1 Mg/1 Ml Inj) 0.5 mg IV Q13H PRN PRN Reason: Pain , Severe (7-10) Last Admin: 12/31/21 09:22 Dose: 0.5 mg Sodium Chloride (Nacl 0.9% 1000 Ml) 1,000 mls @ 42 mls/hr IV DIRECT [facility] Last Admin: 12/31/21 02:07 Dose: 42 mls/hr Insulin Glargine (Insulin Glargine 100 Units/Ml) 30 units SUB-Q QAMDIAB [facility] Levetiracetam (Levetiracetam 500 Mg Tab) 500 mg PO BID [facility] Last Admin: 12/31/21 09:57 Dose: 500 mg Losartan Potassium (Losartan 25 Mg Tab) 12.5 mg PO QDAY [facility] Last Admin: 12/31/21 09:58 Dose: 12.5 mg Methocarbamol (Methocarbamol 750 Mg Tab) 750 mg PO Q8H PRN PRN Reason: Muscle Spasm Montelukast Sodium (Montelukast 10 Mg Tab) 10 mg PO QPM [facility] Ondansetron HCl (Ondansetron 4 Mg/2 Ml Inj) 4 mg IV Q8H PRN PRN Reason: Nausea And Vomiting Last Admin: 12/31/21 00:00 Dose: 4 mg Oxycodone/Acetaminophen (Oxycodone /Acetaminophen 5-325mg Tab) 1 tab PO Q6H PRN PRN Reason: Pain, Moderate (4-6) Last Admin: 12/31/21 02:16 Dose: 1 tab Prednisone (Prednisone 20 Mg Tab) 20 mg PO DAILY [facility] Last Admin: 12/31/21 09:59 Dose: 20 mg Sodium Chloride (Sodium Chloride 0.9% 10 Ml Flush Syringe) 10 ml IV BID [facility] Last Admin: 12/31/21 09:59 Dose: 10 ml Sodium Chloride (Sodium Chloride 0.9% 10 Ml Flush Syringe) 10 ml IV PRN PRN PRN Reason: LINE FLUSH Review of Systems All systems: negative Breasts: deferred Cardiovascular: chest pain (States chest pressure, only occasionally), no orthopnea, no palpitations, no edema, no syncope, no shortness of breath, no dyspnea on exertion Respiratory: no cough, no shortness of breath, no dyspnea on exertion Musculoskeletal: neck pain, low back pain, muscle cramps, arthritis, other (Fibromyalgia, chronic pain.) Physical Examination Vital Signs - 12hr 12/31/21 12/31/21 12/31/21 00:00 00:16 00:30 Temperature Pulse Rate 83 82 82 Respiratory 10 L 10 L 9 L Rate Blood Pressure 150/77 150/77 150/77 O2 Sat by Pulse 98 98 99 Oximetry 12/31/21 12/31/21 12/31/21 00:40 00:50 01:00 Temperature Pulse Rate 84 85 82 Respiratory 9 L 15 11 L Rate Blood Pressure 150/77 150/77 171/86 O2 Sat by Pulse 99 99 98 Oximetry 12/31/21 12/31/21 12/31/21 01:10 01:20 01:30 Temperature Pulse Rate 85 83 84 Respiratory 11 L 17 10 L Rate Blood Pressure 171/86 171/86 171/86 O2 Sat by Pulse 99 99 99 Oximetry 12/31/21 12/31/21 12/31/21 01:56 02:24 04:31 Temperature 99.5 F 98.1 F Pulse Rate 93 H 90 Respiratory 18 20 Rate Blood Pressure 164/90 164/64 O2 Sat by Pulse 99 98 97 Oximetry 12/31/21 10:00 Temperature Pulse Rate Respiratory Rate Blood Pressure O2 Sat by Pulse 98 Oximetry Vital Signs General appearance: no acute distress HEENT: Positive: Normocephaly Neck: Positive: trachea midline Cardiac: Positive: Reg Rate and Rhythm, S1/S2 Lungs: Positive: Normal Exam, clear to auscultation Neuro: Positive: Grossly Intact Abdomen: Positive: Unremarkable, Active Bowel Sounds Female genitourinary: deferred Skin: Positive: Clear. Negative: Rash Musculoskeletal: other (Chronic left-sided pain ) Extremities: Absent: edema Results 12/31/21 05:20 12/31/21 05:20 Cardiac Enzymes 12/30/21 Range/Units 10:27 AST 11 (5-40) units/L Coagulation 12/30/21 Range/Units 10:27 PT 13.1 (12.2-14.9) Sec. INR 0.90 (0.87-1.13) APTT 22.8 L (24.2-36.6) Sec. Lipids 12/30/21 Range/Units 10:27 Triglycerides 327 H (2-149) mg/dL Cholesterol 408 H (50-199) mg/dL HDL Cholesterol 59 (40-59) mg/dL Cholesterol/HDL Ratio 6.91 % CBC 12/31/21 Range/Units 05:20 WBC 7.9 (4.5-11.0) K/mm3 RBC 4.56 (3.65-5.03) M/mm3 Hgb 11.5 (10.1-14.3) gm/dl Hct 34.9 (30.3-42.9) % Plt Count 308 (140-440) K/mm3 Lymph # (Auto) 1.9 (1.2-5.4) K/mm3 [place] # (Auto) 0.6 (0.0-0.8) K/mm3 Eos # (Auto) 0.2 (0.0-0.4) K/mm3 Baso # (Auto) 0.0 (0.0-0.1) K/mm3 Comprehensive Metabolic Panel 12/30/21 12/31/21 Range/Units 10:27 05:20 Sodium 135 L 140 (137-145) mmol/L Potassium 3.7 3.5 L (3.6-5.0) mmol/L Chloride 97.0 L 104.6 (98-107) mmol/L Carbon Dioxide 21 L 24 (22-30) mmol/L BUN 29 H 27 H (7-17) mg/dL Creatinine 2.3 H 2.2 H (0.6-1.2) mg/dL Glucose 403 H 241 H (65-100) mg/dL Calcium 9.4 8.1 L (8.4-10.2) mg/dL Direct Bilirubin < 0.2 (0-0.2) mg/dL Indirect Bilirubin 0.0 mg/dL AST 11 (5-40) units/L ALT 12 (7-56) units/L Alkaline Phosphatase 81 (35-129) units/L Total Protein 6.7 (6.3-8.2) g/dL Albumin 3.4 L (3.9-5) g/dL - Imaging and Cardiology Echo: pending EKG: image reviewed EKG interpretations - EKG Sinus rhythms and dysrhythmias: sinus rhythm Repolarization changes or abnormalities: nonspecific abnormality, ST segment, and/or T wave Assessment and Plan Assessment: Fibromyalgia Hypertension Chronic pain Diabetes Altered mental status Mildly elevated troponin Hypercholesterolemia TASIA -follows renal outpatient History of seizures Cardiographics: EKG-sinus rhythm with nonspecific T wave changes. No acute ischemia. Chest x-ray: 12/30/21: No acute finding Echocardiogram-pending Stress test-pending Recommendations/plan: EKG with sinus rhythm and nonspecific T wave abnormalities. Continuous telemetry monitoring. Initiate Zetia given elevated lipid levels. No statin due to fibromyalgia. Trend troponin. Initial troponin 0.062 Check echo cardiogram Lexiscan MPI stress test in AM. N.p.o. after midnight Oral pain medications as needed per primary team Diabetic management per primary team Electrolyte management per nephrology. No asa or BB for now. Await MPI and echo. Patient seen in conjunction with Dr. Marcus who agrees with the assessment and management of this patient. - Patient Problems (1) Fibromyalgia Current Visit: Yes Status: Acute (2) Chest pain Current Visit: Yes Status: Acute (3) Acute abdominal pain in left flank Current Visit: Yes Status: Acute (4) Chronic pain syndrome Current Visit: Yes Status: Acute (5) TASIA (acute kidney injury) Current Visit: Yes Status: Acute (6) Altered mental status Current Visit: Yes Status: Acute (7) Acute hyperglycemia Current Visit: Yes Status: Acute
[2021-12-31] MEDS: EZETIMIBE 10 MG TAB PO SCH (12:35)
--- NOTE | 2021-12-31 14:17 | Electrocardiograph Report ---
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
--- NOTE | 2021-12-31 15:00 | Consultation ---
History of Present Illness - Reason for Consult Consult date: 12/31/21 acute renal failure Requesting physician: KENYON HIDALGO - History of Present Illness 56 YO Female with DM complicated by Neuropathy, HTN, Mild Intermittent Asthma, Seasonal Allergies, Seizure Disorder, Fibromyalgia, Malnutrition presents to ED for evaluation. Upon arrival the patient was found to have decreased responsiveness, lying in bed with overlying. EMS was notified and upon arrival the patient was found to be in distress and subsequently transported to [facility] for further care and evaluation of the aforementioned symptoms. The patient was seen and evaluated in the emergency department. All lab and imaging studies reviewed. Patient found to have a blood pressure of 240/140 mmHg with clinical symptoms consistent with hypertensive encephalopathy, systemic inflammatory response syndrome, acute kidney injury, hyperosmolar hyperglycemic state, and hyponatremia. Patient treated with IV fluid resuscitation therapy, and empiric IV antibiotic therapy. Patient admitted to telemetry due to increased risk of worsening symptoms. Prior admission on 12/01/2020 reviewed. No reports of fever, chills, chest pain, palpitation, adductive cough, skin rash, recent contact, known exposure to COVID-19. Renal consult is requested because of elevated serum creatinine. Patient complains of some pain in her left flank area. Denies any gross hematuria or frequent urinary tract infection. She does appear to be more awake and alert but somewhat confused . Past History Past Medical History: diabetes, hypertension, seizures, other (See HPI) Past Surgical History: cholecystectomy, , Other (Surgery) Social history: single, Lives alone. denies: smoking, alcohol abuse, prescription drug abuse Family history: diabetes, hypertension Medications and Allergies Allergies Allergy/AdvReac Type Severity Reaction Status Date / Time No Known Allergies Allergy Verified 12/30/21 10:01 Home Medications Medication Instructions Recorded Confirmed Last Taken Type Albuterol Sulfate [Albuterol 0.63% 0.63 mg IH TID PRN 12/01/20 12/31/21 Unknown History NEBS] Budesonide/Formoterol Fumarate 10.2 gm IH DAILY 12/01/20 12/31/21 Unknown History [Symbicort 160-4.5 Mcg Inhaler] Ibuprofen [Motrin 400 MG tab] 400 mg PO Q8H PRN #30 tablet 12/02/20 12/31/21 Unknown Rx levETIRAcetam [Keppra TAB] 500 mg PO BID #60 tablet 12/03/20 12/31/21 Unknown Rx Famotidine [Pepcid] 40 mg PO QHS #30 tab 10/14/21 12/31/21 Unknown Rx Losartan [Cozaar] 12.5 mg PO QDAY #30 tablet 10/14/21 12/31/21 Unknown Rx amLODIPine 5 mg PO QDAY #30 tablet 10/14/21 12/31/21 Unknown Rx predniSONE [Deltasone] 20 mg PO DAILY #5 tablet 11/15/21 12/31/21 Unknown Rx Gabapentin 300 mg PO BID #60 cap 12/22/21 12/31/21 Unknown Rx methOCARBAMOL [Robaxin TAB] 750 mg PO Q8H PRN #30 tab 12/22/21 12/31/21 Unknown Rx Insulin Detemir [Levemir VIAL] 30 units SQ QAM 12/31/21 12/31/21 Unknown History Insulin Regular, Human [Novolin R] 7 units SQ TID 12/31/21 12/31/21 Unknown History Active Meds: Active Medications Acetaminophen (Acetaminophen 325 Mg Tab) 650 mg PO Q4H PRN PRN Reason: Pain MILD(1-3)/Fever >100.5/PENA Last Admin: 12/31/21 05:48 Dose: 650 mg Albuterol (Albuterol 2.5 Mg/3 Ml Nebu) 2.5 mg IH Q4HRT PRN PRN Reason: Shortness Of Breath Amlodipine Besylate (Amlodipine 5 Mg Tab) 5 mg PO QDAY [facility] Last Admin: 12/31/21 09:59 Dose: 5 mg Dicyclomine HCl (Dicyclomine 10 Mg Cap) 10 mg PO QID PRN PRN Reason: abd pain Ezetimibe (Ezetimibe 10 Mg Tab) 10 mg PO QDAY [facility] Last Admin: 12/31/21 12:35 Dose: 10 mg Famotidine (Famotidine 20 Mg Tab) 40 mg PO [facility] Last Admin: 12/30/21 22:00 Dose: 40 mg Gabapentin (Gabapentin 300 Mg Cap) 300 mg PO BID [facility] Last Admin: 12/31/21 10:00 Dose: Not Given Hydromorphone HCl (Hydromorphone 1 Mg/1 Ml Inj) 0.5 mg IV Q13H PRN PRN Reason: Pain , Severe (7-10) Last Admin: 12/31/21 09:22 Dose: 0.5 mg Sodium Chloride (Nacl 0.9% 1000 Ml) 1,000 mls @ 42 mls/hr IV DIRECT [facility] Last Admin: 12/31/21 02:07 Dose: 42 mls/hr Insulin Glargine (Insulin Glargine 100 Units/Ml) 30 units SUB-Q QAMDIAB [facility] Last Admin: 12/31/21 11:00 Dose: 30 units Levetiracetam (Levetiracetam 500 Mg Tab) 500 mg PO BID [facility] Last Admin: 12/31/21 09:57 Dose: 500 mg Losartan Potassium (Losartan 25 Mg Tab) 12.5 mg PO QDAY [facility] Last Admin: 12/31/21 09:58 Dose: 12.5 mg Methocarbamol (Methocarbamol 750 Mg Tab) 750 mg PO Q8H PRN PRN Reason: Muscle Spasm Montelukast Sodium (Montelukast 10 Mg Tab) 10 mg PO QPM [facility] Ondansetron HCl (Ondansetron 4 Mg/2 Ml Inj) 4 mg IV Q8H PRN PRN Reason: Nausea And Vomiting Last Admin: 12/31/21 00:00 Dose: 4 mg Oxycodone/Acetaminophen (Oxycodone /Acetaminophen 5-325mg Tab) 1 tab PO Q6H PRN PRN Reason: Pain, Moderate (4-6) Last Admin: 12/31/21 02:16 Dose: 1 tab Prednisone (Prednisone 20 Mg Tab) 20 mg PO DAILY [facility] Last Admin: 12/31/21 09:59 Dose: 20 mg Sodium Chloride (Sodium Chloride 0.9% 10 Ml Flush Syringe) 10 ml IV BID [facility] Last Admin: 12/31/21 09:59 Dose: 10 ml Sodium Chloride (Sodium Chloride 0.9% 10 Ml Flush Syringe) 10 ml IV PRN PRN PRN Reason: LINE FLUSH Review of Systems ROS unobtainable: due to mental status Exam - Vital Signs Vital signs: Vital Signs Temp Pulse BP Pulse Ox 98.4 F 112 H 240/140 98 12/30/21 09:59 12/30/21 09:59 12/30/21 09:59 12/30/21 09:59 - General Appearance General appearance: well-developed, well-nourished, appears stated age EENT: PERRL, mucous membranes moist Neck: Present: neck supple, trachea midline. Absent: JVD/HJR, Masses Respiratory: Clear to Ascultation Heart: regular, normal heart rate, S1S2, no murmurs Gastrointestinal: Present: normal, normoactive bowel sounds Integumentary: no rash, other (No edema) Results - Lab Results 12/31/21 05:20 12/31/21 05:20 Most recent lab results Calcium 8.1 mg/dL (8.4-10.2) L 12/31/21 05:20 Assessment and Plan Impression * Acute kidney injury * Uncontrolled diabetes * Hyponatremia * Encephalopathy * Accelerated hypertension * Seizure disorder Recommendations * Etiology of acute kidney injury most likely multifactorial. Probably related to accelerated hypertension as well as intake of nonsteroidals. * Her serum creatinine was 1.1-1.2 back in 2010. She may have some degree of underlying diabetic nephropathy and/or hypertensive nephrosclerosis * Shall check a UA as well as a fractional excretion of sodium * If patient has active urine sediment, she will need additional work-up * Check renal ultrasound to assess kidney size and echogenicity * Avoid nephrotoxins * Discontinue ibuprofen * Shall do work-up for secondary hypertension as well * Monitor fluid status and electrolytes closely * Thank you very much for the consultation. Shall follow along with you
[2021-12-31] MEDS: INSULIN REGULAR, HUMAN 100 UNITS/1 ML SUB-Q SCH ×2 (17:37→22:49)
--- NOTE | 2021-12-31 17:44 | Ultrasound Report ---
ULTRASOUND RENAL INDICATION: Acute kidney injury. COMPARISON: CT abdomen one day prior. FINDINGS: RIGHT KIDNEY: Size: 11.6 cm. Echogenicity: Normal. Cortical thickness: Normal. Stones: None. Hydronephrosis: None. Cyst or mass: None. LEFT KIDNEY: Size: 12.5 cm. Echogenicity: Normal. Cortical thickness: Normal. Stones: None. Hydronephrosis: None. Cyst or mass: None. Urinary Bladder: No significant abnormality. Free Fluid: None. Additional Findings: None. IMPRESSION 1. No acute sonographic abnormality of the kidneys. Signer Name: Junior Capone MD Signed: 12/31/2021 5:39 PM Workstation Name: [id number]
[2021-12-31] MEDS ORDERED: MONTELUKAST 10 MG TAB PO SCH (18:00)
[2021-12-31] MEDS: FAMOTIDINE 20 MG TAB PO SCH (22:30)
[2022-01-01 05:24] LABS: Calcium 8.2 mg/dL (8.4-10.2)
[2022-01-01] MEDS ORDERED: REGADENOSON 0.4 MG/5 ML INJ IV ONE ×2 (07:03→07:06)
[2022-01-01] MEDS: INSULIN REGULAR, HUMAN 100 UNITS/1 ML SUB-Q SCH ×2 (07:30→11:30)
[2022-01-01] MEDS: INSULIN GLARGINE 100 UNITS/ML SUB-Q SCH (08:00)
[2022-01-01] MEDS: GABAPENTIN 300 MG CAP PO SCH (10:00)
--- NOTE | 2022-01-01 11:30 | Electrocardiograph Report ---
[facility] Test Date: 2021-12-31 Test Time: 11:30:51 Pat Name: ALEXA NGUYEN Department: Room: A374 1 Gender: F [employer]: ALONSO : 1965 Requested By: FIDENCIO SIMPSON Order Number: [id number] Reading MD: Nicholas Marcus Measurements Intervals [place] Rate: 85 P: 64 NH: 136 QRS: -20 QRSD: 95 T: 122 QT: 395 QTc: 471 Interpretive Statements Sinus rhythm Nonspecific T abnormalities, lateral leads Compared to ECG 12/30/2021 10:18:40 Sinus tachycardia no longer present T-wave abnormality still present Electronically Signed On 01-01-2022 11:29:58 EDT by Nicholas Marcus
--- NOTE | 2022-01-01 11:37 | Nuclear Medicine Report ---
APPROVED REPORT Exam: Nuclear Stress Test Indication: Chest pain Patient Location: [address] [place] [address] Room #: A374 Ht: 5 ft 5 in Wt: 201 lbs BSA: 1.98 m2 HR: 85 bpmBP: 183/89 mmHgBMI: 33.44 Rhythm: Sinus Rhythm Stress Test Details Stress Test: Pharmacologic stress testing performed using 0.4 mg of regadenoson per 5 mL given IV over 10 seconds. Reason for pharmacologic stress test: physical limitation. HR Resting HR: 88 bpm Max HR Achieved: 101 bpm Max Heart Rate (APMHR): 164 bpm Target HR (85% APMHR): 139 bpm % of APMHR: 61 Recovery HR: 95 bpm HR response to stress: Normal HR response to stress BP Resting BP: 154/71 mmHg Max BP: 200/99 mmHg Recovery BP: 161/76 mmHg BP response to stress: Abnormal hypertensive response to stress. ECG Resting ECG: Sinus Rhythm Stress ECG: Sinus Tachycardia Arrhythmia: None Recovery ECG: Sinus Rhythm Recovery Arrhythmia: None Clinical Reason for Termination: Completed protocol Stress Symptoms: None NM EXAM: Myocardial Perfusion REST/STRESS Imaging Protocol: Rest Tc-99m/Stress Tc-99m 1 day Resting Data Rest SPECT myocardial perfusion imaging was performed in supine position 45 minutes following the intravenous injection of 10 mCi of Tc-99m Myoview. Time of rest injection: 0700 Pharmacologic Stress Pharmacologic stress test was performed by injecting Regadenoson 0.4 mg IV push followed by the intravenous injection of 28 mCi of Tc-99m Myoview. Time of stress injection: 09:00:48 Gated Stress SPECT was performed 30 minutes after stress injection. The images were gated to evaluate regional wall motion and calculate left ventricular ejection fraction. Study Quality Study: excellent Lung Uptake: Normal Study Data TID = 1.12. Perfusion Wall Motion The rest and stress images show normal left ventricular wall motion. Nuclear Conclusion ECG Findings: negative for ischemia Clinical Findings: negative for ischemia Nuclear Findings: negative for ischemia Exercise Capacity: not assessed Left Ventricular Function: normal Normal study. No scintigraphic evidence for myocardial ischemia or scar. Normal left ventricular size and function with no regional wall motion abnormalities.
[2022-01-01 11:39] VITALS: BP 156/88
[2022-01-01] MEDS: HYDROmorphone 1 MG/1 ML INJ IV PRN (12:01)
[2022-01-01] MEDS: levETIRAcetam 500 MG TAB PO SCH (12:04)
[2022-01-01] MEDS: LOSARTAN 25 MG TAB PO SCH (12:05)
[2022-01-01] MEDS: amLODIPine 5 MG TAB PO SCH (12:05)
[2022-01-01] MEDS: EZETIMIBE 10 MG TAB PO SCH (12:05)
[2022-01-01] MEDS: predniSONE 20 MG TAB PO SCH (12:05)
--- NOTE | 2022-01-01 13:48 | Progress Note ---
Assessment and Plan Impression * Acute kidney injury * Uncontrolled diabetes * Hyponatremia * Encephalopathy * Accelerated hypertension * Seizure disorder Recommendations * Etiology of acute kidney injury most likely multifactorial. Probably related to accelerated hypertension as well as intake of nonsteroidals. * Her serum creatinine was 1.1-1.2 back in 2020. She may have some degree of underlying diabetic nephropathy and/or hypertensive nephrosclerosis * Her urine shows 4+ dipstick protein. Her urine also shows 14 WBCs and 1 RBC per high-power field. Check urine protein creatinine ratio. Follow-up results of fractional excretion of sodium as well as urine for eosinophils * renal ultrasound essentially normal * Avoid nephrotoxins * Patient advised to avoid nonsteroidals as well as Valdez 2 inhibitors * Work-up for secondary hypertension in progress. Her blood pressure is improving * Increase amlodipine to 10 mg daily. Once renal function stabilizes, would recommend increasing the dose of her losartan * Patient states that she does see a architectural model maker, however does not recall his name Subjective Date of service: 01/01/22 Interval history: Patient complains of back pain. Asking for more pain meds. Denies any shortness of breath. Objective - Vital Signs Vital signs: Vital Signs - 12hr 01/01/22 01/01/22 01/01/22 05:58 08:18 08:54 Temperature 98.8 F Pulse Rate 84 Respiratory 20 Rate Blood Pressure 144/82 183/89 190/99 O2 Sat by Pulse 97 Oximetry 01/01/22 01/01/22 01/01/22 08:56 08:58 08:59 Temperature Pulse Rate Respiratory Rate Blood Pressure 200/71 165/80 164/79 O2 Sat by Pulse Oximetry 01/01/22 01/01/22 01/01/22 09:00 09:01 10:00 Temperature Pulse Rate Respiratory Rate Blood Pressure 161/80 154/76 O2 Sat by Pulse 98 Oximetry 01/01/22 11:33 Temperature 99.1 F Pulse Rate 100 H Respiratory 18 Rate Blood Pressure 156/88 O2 Sat by Pulse 99 Oximetry - General Appearance General appearance: well-developed, well-nourished, appears stated age EENT: PERRL, mucous membranes moist Neck: no JVD, no thyromegaly, no carotid bruit, supple Respiratory: Present: Clear to Ascultation Cardiology: regular, normal heart rate Gastrointestinal: normal, normoactive bowel sounds Integumentary: no rash, other (No edema) - Lab 12/31/21 05:20 01/01/22 04:45 Most recent lab results Calcium 8.2 mg/dL (8.4-10.2) L 01/01/22 04:45 Medications & Allergies - Medications Allergies/Adverse Reactions: Allergies No Known Allergies Allergy (Verified 12/30/21 10:01) Home Medications: Home Medications Medication Instructions Recorded Confirmed Last Taken Type Albuterol Sulfate [Albuterol 0.63% 0.63 mg IH TID PRN 12/01/20 12/31/21 Unknown History NEBS] Budesonide/Formoterol Fumarate 10.2 gm IH DAILY 12/01/20 12/31/21 Unknown History [Symbicort 160-4.5 Mcg Inhaler] Ibuprofen [Motrin 400 MG tab] 400 mg PO Q8H PRN #30 tablet 12/02/20 12/31/21 Unknown Rx levETIRAcetam [Keppra TAB] 500 mg PO BID #60 tablet 12/03/20 12/31/21 Unknown Rx Famotidine [Pepcid] 40 mg PO QHS #30 tab 10/14/21 12/31/21 Unknown Rx Losartan [Cozaar] 12.5 mg PO QDAY #30 tablet 10/14/21 12/31/21 Unknown Rx amLODIPine 5 mg PO QDAY #30 tablet 10/14/21 12/31/21 Unknown Rx predniSONE [Deltasone] 20 mg PO DAILY #5 tablet 11/15/21 12/31/21 Unknown Rx Gabapentin 300 mg PO BID #60 cap 12/22/21 12/31/21 Unknown Rx methOCARBAMOL [Robaxin TAB] 750 mg PO Q8H PRN #30 tab 12/22/21 12/31/21 Unknown Rx Insulin Detemir [Levemir VIAL] 30 units SQ QAM 12/31/21 12/31/21 Unknown History Insulin Regular, Human [Novolin R] 7 units SQ TID 12/31/21 12/31/21 Unknown History Active Medications: Generic Name Dose Route Start Last Admin Trade Name Freq PRN Reason Stop Dose Admin Acetaminophen 650 mg 12/30/21 20:06 12/31/21 05:48 Acetaminophen 325 Mg Tab PO 650 mg Q4H PRN Administration Pain MILD(1-3)/Fever >100.5/PENA Albuterol 2.5 mg 12/30/21 20:06 Albuterol 2.5 Mg/3 Ml Nebu IH Q4HRT PRN Shortness Of Breath Amlodipine Besylate 5 mg 12/31/21 10:00 01/01/22 12:05 Amlodipine 5 Mg Tab PO 5 mg QDAY DORON Administration Dicyclomine HCl 10 mg 12/30/21 20:09 Dicyclomine 10 Mg Cap PO QID PRN abd pain Ezetimibe 10 mg 12/31/21 12:00 01/01/22 12:05 Ezetimibe 10 Mg Tab PO 10 mg QDAY DORON Administration Famotidine 40 mg 12/30/21 22:00 12/31/21 22:30 Famotidine 20 Mg Tab PO 40 mg HS DORON Administration Gabapentin 300 mg 12/30/21 22:00 01/01/22 10:00 Gabapentin 300 Mg Cap PO Not Given BID DORON Hydromorphone HCl 0.5 mg 12/30/21 20:06 01/01/22 12:01 Hydromorphone 1 Mg/1 Ml Inj IV 0.5 mg Q13H PRN Administration Pain , Severe (7-10) Sodium Chloride 1,000 mls @ 42 mls/hr 12/30/21 20:15 12/31/21 02:07 Nacl 0.9% 1000 Ml IV 42 mls/hr DIRECT DORON Administration Insulin Glargine 30 units 12/31/21 11:00 01/01/22 08:00 Insulin Glargine 100 Units/Ml SUB-Q 30 units QAMDIAB DORON Administration Insulin Human Regular 0 units 12/31/21 17:30 01/01/22 11:30 Insulin Regular, Human 100 Units/1 Ml SUB-Q Not Given ACHS DORON Protocol Levetiracetam 500 mg 12/30/21 22:00 01/01/22 12:04 Levetiracetam 500 Mg Tab PO 500 mg BID DORON Administration Losartan Potassium 12.5 mg 12/31/21 10:00 01/01/22 12:05 Losartan 25 Mg Tab PO 12.5 mg QDAY DORON Administration Methocarbamol 750 mg 12/30/21 20:09 Methocarbamol 750 Mg Tab PO Q8H PRN Muscle Spasm Montelukast Sodium 10 mg 12/31/21 18:00 12/31/21 17:14 Montelukast 10 Mg Tab PO 10 mg QPM DORON Administration Ondansetron HCl 4 mg 12/30/21 20:06 12/31/21 00:00 Ondansetron 4 Mg/2 Ml Inj IV 4 mg Q8H PRN Administration Nausea And Vomiting Oxycodone/Acetaminophen 1 tab 12/30/21 20:06 12/31/21 17:43 Oxycodone /Acetaminophen 5-325mg Tab PO 1 tab Q6H PRN Administration Pain, Moderate (4-6) Prednisone 20 mg 12/31/21 10:00 01/01/22 12:05 Prednisone 20 Mg Tab PO 20 mg DAILY DORON Administration Sodium Chloride 10 ml 12/30/21 22:00 12/31/21 22:37 Sodium Chloride 0.9% 10 Ml Flush Syringe IV 10 ml BID DORON Administration Sodium Chloride 10 ml 12/30/21 20:06 Sodium Chloride 0.9% 10 Ml Flush Syringe IV PRN PRN LINE FLUSH
[2022-01-01] MEDS ORDERED: amLODIPine 5 MG TAB PO SCH (13:50)
[2022-01-01] MEDS ORDERED: amLODIPine 5 MG TAB PO ONE (15:00)
--- NOTE | 2022-01-01 15:28 | Discharge Summary ---
Providers - Providers Date of Admission: 12/30/21 20:06 Attending physician: SUMAYA BROWN MD 12/31/21 08:47 Consult to Physician [CONS] Routine Comment: Consulting Provider: CAMDEN LOTT Physician Instructions: Reason For Exam: cp 12/31/21 08:54 Consult to Physician [CONS] Routine Comment: Consulting Provider: CONCEPCION BURR Physician Instructions: Reason For Exam: TASIA Primary care physician: [employer] Hospitalization Condition: Stable Disposition: 01 HOME / SELF CARE / HOMELESS Exam - Constitutional Vitals: Temp Pulse Resp BP Pulse Ox 99.1 F 100 H 18 156/88 99 01/01/22 11:33 01/01/22 11:33 01/01/22 11:33 01/01/22 11:33 01/01/22 11:33 General appearance: Present: no acute distress, obese - EENT Eyes: Present: PERRL, EOM intact ENT: hearing intact - Neck Neck: Present: supple - Respiratory Respiratory effort: normal Respiratory: bilateral: CTA - Cardiovascular Rhythm: regular - Extremities Extremities: No edema - Abdominal General gastrointestinal: Present: soft, non-tender - Psychiatric Psychiatric: appropriate mood/affect - Neurologic Neurologic: moves all extremities Plan Activity: advance as tolerated Diet: diabetic (1800 cals) Follow up with: WILVER SOTO MD [Primary Care Provider] - 3-5 Days ANTONIO BRAVO MD [Staff Physician] - 7 Days
[2022-01-01] MEDS ORDERED: POTASSIUM CHLORIDE ER 10 MEQ TAB PO ONE (15:30)
[2022-01-01] MEDS: oxyCODONE /ACETAMINOPHEN 5-325MG TAB PO PRN (15:47)
--- NOTE | 2022-01-01 15:49 | Progress Note ---
Assessment and Plan This is a 56-year-old female, unknown to our practice, with past medical history significant for fibromyalgia, diabetic neuropathy, arthritis, and hypertension who presented to the emergency room with lethargy and diminished cognition. She is now admitted to the hospital and is complaining of some chest discomfort and left sided body pain.. Assessment: NSTEMI type II-likely in the setting of renal insufficiency Fibromyalgia Hypertension Chronic pain Diabetes Altered mental status Hypercholesterolemia TASIA -follows renal outpatient History of seizures Cardiographics: EKG-sinus rhythm with nonspecific T wave changes. No acute ischemia. Chest x-ray: 12/30/21: No acute finding Echocardiogram-EF 50-55 %. LV systolic function is normal Stress test-normal study. Negative for significant ischemia Recommendations/plan: EKG with sinus rhythm and nonspecific T wave abnormalities. Continuous telemetry monitoring. Continue Zetia. No statin due to fibromyalgia. Repeat troponin downtrending at 0.059 Recommend oral anti-inflammatory pain medications as needed per primary team. Pain appears noncardiac in nature. NSTEMI type II likely secondary to renal insufficiency Diabetic management per primary team Electrolyte management per nephrology. Stable from a cardiac standpoint. Patient seen in conjunction with Dr. Marcus who agrees with the assessment and management of this patient. - Patient Problems (1) Fibromyalgia Current Visit: Yes Status: Acute (2) Chest pain Current Visit: Yes Status: Acute (3) Acute abdominal pain in left flank Current Visit: Yes Status: Acute (4) Chronic pain syndrome Current Visit: Yes Status: Acute (5) TASIA (acute kidney injury) Current Visit: Yes Status: Acute (6) Altered mental status Current Visit: Yes Status: Acute (7) Acute hyperglycemia Current Visit: Yes Status: Acute Subjective Date of service: 01/01/22 Principal diagnosis: NSTEMI type II, htn , fibromyalgia Interval history: Seen and examined in hospital room today. No apparent distress. No complaints of chest pain. Objective Vital Signs Temp Pulse Resp BP Pulse Ox 01/01/22 11:33 99.1 F 100 H 18 156/88 99 01/01/22 10:00 98 01/01/22 09:01 154/76 01/01/22 09:00 161/80 01/01/22 08:59 164/79 01/01/22 08:58 165/80 01/01/22 08:56 200/71 01/01/22 08:54 190/99 04/19/22 08:18 183/89 01/01/22 05:58 98.8 F 84 20 144/82 97 12/31/21 22:29 99.5 F 91 H 20 129/68 94 12/31/21 22:28 91 H 129/68 94 12/31/21 22:00 98 12/31/21 16:51 98.5 F 102 H 16 152/89 98 - Physical Examination General: Appears Well, No Apparent Distress HEENT: Positive: Normocephaly Neck: Positive: neck supple, trachea midline. Negative: JVD/HJR, Masses Cardiac: Positive: Reg Rate and Rhythm, S1/S2 Lungs: Positive: clear to auscultation Neuro: Positive: Grossly Intact Abdomen: Positive: Unremarkable, Active Bowel Sounds Skin: Positive: Clear. Negative: Rash Musculoskeletal: other (Chronic left-sided pain ) Extremities: Absent: edema - Labs and Meds Comprehensive Metabolic Panel 01/01/22 Range/Units 04:45 Sodium 138 (137-145) mmol/L Potassium 3.3 L (3.6-5.0) mmol/L Chloride 104.3 (98-107) mmol/L Carbon Dioxide 23 (22-30) mmol/L BUN 29 H (7-17) mg/dL Creatinine 2.3 H (0.6-1.2) mg/dL Glucose 163 H (65-100) mg/dL Calcium 8.2 L (8.4-10.2) mg/dL - Imaging and Cardiology EKG: image reviewed Nuclear stress test: report reviewed Echo: report reviewed - EKG Sinus rhythms and dysrhythmias: sinus rhythm Repolarization changes or abnormalities: nonspecific abnormality, ST segment, and/or T wave
[2022-01-02] MEDS ORDERED: amLODIPine 10 MG TAB PO SCH (10:00)
== END 2022-01-01 17:14 | disposition home or self-care (01) | DRG 637 ==
LOC: ED 09:58 → 3A 20:06
PROVIDERS: ADMIT Internal Medicine; ATTEND Internal Medicine
DX: E11.00 Type 2 diabetes mellitus with hyperosmolarity without nonketotic hyperglycemic-hyperosmolar coma (NKHHC) (principal); N17.0 Acute kidney failure with tubular necrosis; I21.A1 Myocardial infarction type 2; I67.4 Hypertensive encephalopathy; R65.10 Systemic inflammatory response syndrome (SIRS) of non-infectious origin without acute organ dysfunction; E87.1 Hypo-osmolality and hyponatremia; E44.0 Moderate protein-calorie malnutrition; I12.9 Hypertensive chronic kidney disease with stage 1 through stage 4 chronic kidney disease, or unspecified chronic kidney disease; M79.7 Fibromyalgia; G89.4 Chronic pain syndrome; E11.65 Type 2 diabetes mellitus with hyperglycemia; G40.909 Epilepsy, unspecified, not intractable, without status epilepticus; E78.00 Pure hypercholesterolemia, unspecified; E11.22 Type 2 diabetes mellitus with diabetic chronic kidney disease; N18.2 Chronic kidney disease, stage 2 (mild); Z83.3 Family history of diabetes mellitus; Z82.49 Family history of ischemic heart disease and other diseases of the circulatory system; Z90.49 Acquired absence of other specified parts of digestive tract; Z68.33 Body mass index [BMI] 33.0-33.9, adult
CPT/HCPCS: 36415; 70450; 71045; 74176; 76770; 78452; 80048; 80061; 80076; 80307; 80320; 81001; 82140; 82550; 82962; 83690; 84443; 84484; 85025; 85379; 85610; 85730; 87040; 87086; 93005; 93017; 93306; G0378; J3490; Q9967; A9502; C8929; G0480; J1170; J1815; J2405; J2785; J7030